=== PATIENT | female | born 1970 | race Caucasian/White ===

== ENCOUNTER 2016-04-30 19:10 | Inpatient (IN) | payer OTHER ==
[~2016-04-30] VITALS: Ht 154.9 cm; Wt 83.3 kg
[~2016-04-30 19:10] MED LIST: ALBU8.5H IH; CARI350 PO; CITA10TA7 PO; HYDR1LIQ5 PO; IBUP-1547 PO; IPRA3AMP4 IH; LEVO500 PO; LORA1TAB3 PO; MORP15 PO; OLAN10TA3 PO; PROM25 PO; QUET25TA PO; RANI150T7 PO; TOPI-37 PO
[2016-04-30] MEDS ORDERED: BACL10TA PO (19:40)
[2016-04-30 20:28] LABS: BASOPHILS % (AUTO) 0.1 % (0.0-2.0); EOSINOPHILS % (AUTO) 0 % (1.0-6.0); HEMOGLOBIN 11.2 g/dL (12.0-16.0); LYMPHOCYTES # (AUTO) 1.8 K/uL (1.0-4.8); LYMPHOCYTES % (AUTO) 6.2 % (22.0-44.0); MEAN CORPUSCULAR HEMOGLOBIN 26.4 pg (26.0-34.0); MEAN CORPUSCULAR HGB CONC 32.9 G/dL (31.0-37.0); MEAN CORPUSCULAR VOLUME 80 fL (80-100); MONOCYTES # (AUTO) 1.3 K/uL (0.1-1.0); MONOCYTES % (AUTO) 4.3 % (2.0-9.0); NEUTROPHILS # (AUTO) 26.4 K/uL (1.8-7.7); NEUTROPHILS % (AUTO) 89.4 % (40.0-70.0); PLATELET COUNT (AUTO) 263 K/uL (150-450); RED BLOOD CELL COUNT(AUTO) 4.24 MIL/uL (4.00-5.20); RED CELL DISTRIBUTION WIDTH 16.3 % (11.5-14.5); WHITE BLOOD COUNT (AUTO) 29.5 K/uL (4.5-11.0)
[2016-04-30 20:35] LABS: INR 1.1 (0.9-1.1); PROTHROMBIN TIME 11.9 SEC (9.4-11.6)
[2016-04-30 20:38] LABS: ALANINE AMINOTRANSFERASE 23 U/L (12-78); ALBUMIN 2.8 g/dL (3.4-5.0); ANION GAP 16 mmol/L (8-16); ASPARTATE AMINOTRANSFERASE 23 U/L (15-37); BILIRUBIN,TOTAL 0.7 mg/dL (0.1-1.0); CALCIUM, TOTAL 8.2 mg/dL (8.8-10.5); CARBON DIOXIDE 19 mmol/L (22-29); CHLORIDE 89 mmol/L (98-107); CREATINE KINASE, TOTAL 46 U/L (26-192); CREATININE 1.25 mg/dL (0.60-1.30); GLOMERULAR FILTR. RATE CALC 46 mL/min (>60); TOTAL PROTEIN, SERUM 7.8 g/dL (6.4-8.2); UREA NITROGEN, BLOOD 8 mg/dL (7-18)
[2016-04-30 20:43] LABS: POTASSIUM 2.8 mmol/L (3.5-5.1); SODIUM SERUM 124 mmol/L (136-145)
[2016-04-30] MEDS ORDERED: ALBUTEROL SULFATE 5 MG/ML 20 ML NEB SOLN [BULK] NEB ONE ×2 (20:45→23:15)
[2016-04-30] MEDS ORDERED: IPRATROPIUM BROMIDE 0.5 MG/2.5 ML NEB SOLUTION NEB ONE ×2 (20:45→23:15)
[2016-04-30 20:56] LABS: B-TYPE NATRIURETIC PEPTIDE 58 pg/mL (0-100)
[2016-04-30 21:15] LABS: RBC MORPHOLOGY COMMENT NORMAL RBC MORPH
[2016-04-30] MEDS ORDERED: POTASSIUM CHLORIDE 10% 40 MEQ/30 ML LIQUID UDCUP PO ONE (21:15)
[2016-04-30] MEDS ORDERED: MethylPREDNISolone SOD SUCC 125 MG/2 ML VIAL IVP ONE (21:15)
[2016-04-30] MEDS ORDERED: ASPIRIN 81 MG CHEWABLE TABLET PO ONE (21:15)
[2016-04-30] MEDS ORDERED: ONDANSETRON HCL 4 MG/2 ML VIAL IVP ONE (21:15)
[2016-04-30] MEDS ORDERED: MORPHINE SULFATE 4 MG/ML SYRINGE IVP ONE (21:15)
[2016-04-30] MEDS ORDERED: LEVOFLOXACIN 750 MG/D5% WATER 150 ML IV ONE (21:15)
[2016-04-30] MEDS ORDERED: SODIUM CHLORIDE 0.9% 1,000 ML IV ONE ×2 (21:15→23:15)
[2016-04-30] MEDS: POTASSIUM CHL 10 MEQ/WATER 50 ML IV SCH ×2 (21:29→23:27)
[2016-04-30] MEDS ORDERED: SODIUM CHLORIDE 0.9% 100 ML ONE (21:42)
[2016-04-30] MEDS ORDERED: IOVERSOL 350 MG/ML 100 ML VIAL ONE (21:42)
[2016-04-30 21:55] LABS: PHOSPHORUS 3.9 mg/dL (2.5-4.9)
[2016-04-30 23:06] LABS: ABG A-A DIFF O2 150.3 mmHg (10-20.0); ABG HCO3 16.4 mmol/L (22.0-26.0); ABG OXYHEMOGLOBIN 83.2 % (94.0-100.0); ABG PCO2 33 mmHg (35-45); ABG PH 7.295 (7.35-7.450); TEMPERATURE, FAHRENHEIT, BG 98.6 FAHREN (96.0-98.6)
[2016-04-30 23:14] LABS: ADD UA MICROSCOPIC NO; APPEARANCE,URINE CLEAR (CLEAR); GLUCOSE, URINE (UA) NEGATIVE (NEGATIVE); KETONES,URINE NEGATIVE (NEGATIVE); LEUKOCYTE ESTERASE ,URINE NEGATIVE (NEGATIVE); OCCULT BLOOD,URINE NEGATIVE (NEGATIVE); PROTEIN,URINE NEGATIVE (NEGATIVE)
[2016-05-01] MEDS ORDERED: MAGNESIUM SULFATE 1 GM in DEXTROSE 5%-WATER 50 ML IV ONE ×2
[2016-05-01] MEDS ORDERED: ONDANSETRON HCL 4 MG/2 ML VIAL IVP ONE
[2016-05-01] MEDS ORDERED: MORPHINE SULFATE 4 MG/ML SYRINGE IVP ONE
[2016-05-01] MEDS: POTASSIUM CHL 10 MEQ/WATER 50 ML IV SCH (01:11)
[2016-05-01 01:22] VITALS: BP 144/53
[2016-05-01] MEDS ORDERED: ALBUTEROL SULFATE HFA 90 MCG/PUFF 8 GM INHALER IH PRN (02:15)
[2016-05-01] MEDS ORDERED: MISC MED-CONVERTED FROM AMBULATORY (Ipratropium/Albuterol Sulfate (Duoneb 2.5-0.5 Mg/3 Ml IH SCH (02:15)
[2016-05-01] MEDS ORDERED: PROMETHAZINE HCL 25 MG TABLET PO PRN (02:15)
[2016-05-01] MEDS ORDERED: RANITIDINE HCL 150 MG TABLET PO PRN (02:15)
[2016-05-01] MEDS ORDERED: HYDROmorphone HCL 2 MG TABLET PO SCH (02:15)
[2016-05-01] MEDS: LORazepam 1 MG TABLET PO PRN ×4 (02:25→23:45)
[2016-05-01] MEDS ORDERED: INFLUENZA VIRUS VACCINE QVS 2016-17 (3YR+)/PF 60 MCG/0.5 ML SYRINGE IM ONE (04:15)
[2016-05-01] MEDS ORDERED: PNEUMOCOCCAL VACCINE POLYVALENT 0.5 ML VIAL [PPSV23] IM ONE (04:15)
[2016-05-01 05:18] VITALS: BP 106/72
[2016-05-01] MEDS ORDERED: MAGNESIUM SULFATE 2 GM in DEXTROSE 5%-WATER 50 ML IV PRN (06:15)
[2016-05-01] MEDS ORDERED: MAGNESIUM SULFATE 4 GM/WATER 100 ML IV PRN (06:15)
[2016-05-01] MEDS ORDERED: POTASSIUM CHLORIDE 20 MEQ ER TABLET PO PRN (06:15)
[2016-05-01] MEDS ORDERED: MAGNESIUM OXIDE 400 MG TABLET PO PRN (06:15)
[2016-05-01] MEDS ORDERED: POTASSIUM CHL 10 MEQ/WATER 50 ML IV PRN (06:15)
[2016-05-01] MEDS ORDERED: DEXTROSE 50%-WATER 25 GM/50 ML SYRINGE IVP PRN (06:15)
[2016-05-01] MEDS ORDERED: ACETAMINOPHEN 325 MG TABLET PO PRN (06:30)
[2016-05-01] MEDS ORDERED: MAGNESIUM HYDROXIDE SUSPENSION 30 ML UDCUP PO PRN (06:30)
[2016-05-01] MEDS ORDERED: 0.9% SODIUM CHLORIDE 10 ML SYRINGE IVP PRN (06:30)
[2016-05-01] MEDS ORDERED: ONDANSETRON HCL 4 MG/2 ML VIAL IVP PRN (06:30)
[2016-05-01] MEDS ORDERED: *CLINICAL-LEVOFLOXACIN IVPB DOSING CLINICAL ONE ×2 (06:30)
[2016-05-01 06:50] LABS: EOSINOPHILS % (AUTO) 0 % (1.0-6.0); HEMATOCRIT 31.2 % (36-46); HEMOGLOBIN 10.2 g/dL (12.0-16.0); LYMPHOCYTES # (AUTO) 0.5 K/uL (1.0-4.8); LYMPHOCYTES % (AUTO) 1.8 % (22.0-44.0); MEAN CORPUSCULAR HEMOGLOBIN 26.4 pg (26.0-34.0); MEAN CORPUSCULAR HGB CONC 32.7 G/dL (31.0-37.0); MEAN CORPUSCULAR VOLUME 81 fL (80-100); MONOCYTES # (AUTO) 0.5 K/uL (0.1-1.0); MONOCYTES % (AUTO) 1.9 % (2.0-9.0); NEUTROPHILS # (AUTO) 24.7 K/uL (1.8-7.7); PLATELET COUNT (AUTO) 242 K/uL (150-450); RED BLOOD CELL COUNT(AUTO) 3.87 MIL/uL (4.00-5.20); RED CELL DISTRIBUTION WIDTH 16.6 % (11.5-14.5); WHITE BLOOD COUNT (AUTO) 25.7 K/uL (4.5-11.0)
[2016-05-01 07:06] LABS: ALBUMIN 2.5 g/dL (3.4-5.0); CALCIUM, TOTAL 8.7 mg/dL (8.8-10.5); CHOL/HDL RATIO 7.7 (3.9-5.7); CREATININE 1.12 mg/dL (0.60-1.30); POTASSIUM 4.3 mmol/L (3.5-5.1)
[2016-05-01 07:29] LABS: NEUTROPHILS % (AUTO) 96.3 % (40.0-70.0)
[2016-05-01 07:39] VITALS: BP 141/83
[2016-05-01] MEDS: IPRATROPIUM BROMIDE 0.5 MG/2.5 ML NEB SOLUTION NEB SCH ×3 (07:41→19:35)
[2016-05-01] MEDS: ALBUTEROL SULFATE 2.5 MG/0.5 ML NEB SOLUTION NEB SCH ×3 (07:41→19:35)
[2016-05-01] MEDS: IBUPROFEN 800 MG TABLET PO SCH ×3 (08:12→17:29)
[2016-05-01] MEDS: TOPIRAMATE 100 MG TABLET PO SCH ×2 (08:12→21:41)
[2016-05-01] MEDS: MORPHINE SULFATE 15 MG ER TABLET PO SCH ×2 (08:12→21:42)
[2016-05-01] MEDS: PANTOPRAZOLE SODIUM 40 MG/VIAL IVP SCH (08:12)
[2016-05-01] MEDS: BACLOFEN 10 MG TABLET PO SCH ×4 (08:12→21:41)
[2016-05-01] MEDS: DOCUSATE SODIUM 100 MG CAPSULE PO SCH ×2 (08:15→21:41)
[2016-05-01] MEDS: OxyCODONE HCL/ACETAMINOPHEN 5-325 MG TABLET PO PRN ×3 (08:21→14:17)
[2016-05-01 09:38] LABS: HEMOGLOBIN A1C 6.5 % (4.5-6.2)
[2016-05-01 09:59] LABS: MAGNESIUM 2.4 mg/dL (1.80-2.40)
[2016-05-01 10:50] VITALS: BP 113/62
[2016-05-01] MEDS ORDERED: VANCOMYCIN HCL 1 GM/D5% WATER 200 ML IV ONE (11:00)
[2016-05-01] MEDS: SODIUM CHLORIDE 0.9% 1,000 ML IV SCH ×2 (12:46→16:15)
[2016-05-01 13:57] LABS: INFLUENZA TYPE B NEGATIVE FOR TYPE B (NEGATIVE)
[2016-05-01 14:01] LABS: ABG A-A DIFF O2 270.3 mmHg (10-20.0); ABG BASE EXCESS -9.6 mmol/L (-2.0-3.0); ABG HCO3 17.2 mmol/L (22.0-26.0); ABG OXYHEMOGLOBIN 95.4 % (94.0-100.0); ABG PCO2 40 mmHg (35-45); ALLEN TEST, BLOOD GAS POSITIVE; TEMPERATURE, FAHRENHEIT, BG 98.6 FAHREN (96.0-98.6)
[2016-05-01 14:02] LABS: IPAP, BG 10 cm H2O
[2016-05-01 14:02] LABS: GLUCOSE,POINT OF CARE 305 MG/DL (70-110)
[2016-05-01 14:02] LABS: GLUCOSE,POINT OF CARE 263 MG/DL (70-110)
[2016-05-01] MEDS: MethylPREDNISolone SOD SUCC 125 MG/2 ML VIAL IVP SCH (17:52)
[2016-05-01 19:30] VITALS: BP 132/59
[2016-05-01] MEDS: BUDESONIDE 0.5 MG/2 ML NEB SOLUTION NEB SCH (19:35)
[2016-05-01] MEDS: VANCOMYCIN HCL 1.25 GM in DEXTROSE 5%-WATER 250 ML IV SCH (21:40)
[2016-05-01] MEDS: OLANZapine 10 MG TABLET PO SCH (21:41)
[2016-05-01] MEDS: CITALOPRAM HYDROBROMIDE 10 MG TABLET PO SCH (21:42)
[2016-05-01] MEDS: INSULIN ASPART 100 UNITS/ML SQ PRN (21:52)
[2016-05-01 23:17] LABS: GLUCOSE COMMENT 1 Received Meds; GLUCOSE,POINT OF CARE 210 MG/DL (70-110)
[2016-05-01] MEDS: QUEtiapine FUMARATE 25 MG TABLET PO PRN (23:54)
[2016-05-02] VITALS (7 sets, daily range): BP systolic 107–153; BP diastolic 49–91
[2016-05-02] MEDS: MethylPREDNISolone SOD SUCC 125 MG/2 ML VIAL IVP SCH ×2 (00:08→06:24)
[2016-05-02] MEDS: LEVOFLOXACIN 750 MG/D5% WATER 150 ML IV SCH ×2 (00:16→20:26)
[2016-05-02] MEDS: CEFEPIME HCL 2 GM in DEXTROSE 5%-WATER 50 ML IV SCH ×3 (01:00→23:50)
[2016-05-02] MEDS: OxyCODONE HCL/ACETAMINOPHEN 5-325 MG TABLET PO PRN ×4 (01:08→19:29)
[2016-05-02] MEDS: IPRATROPIUM BROMIDE 0.5 MG/2.5 ML NEB SOLUTION NEB SCH ×4 (02:11→19:49)
[2016-05-02] MEDS: ALBUTEROL SULFATE 2.5 MG/0.5 ML NEB SOLUTION NEB SCH ×4 (02:11→19:49)
[2016-05-02] MEDS: SODIUM CHLORIDE 0.9% 1,000 ML IV SCH ×3 (02:15→23:53)
[2016-05-02] MEDS: LORazepam 1 MG TABLET PO PRN ×3 (03:54→21:23)
[2016-05-02] MEDS: INSULIN ASPART 100 UNITS/ML SQ PRN ×4 (06:30→22:27)
[2016-05-02 07:46] LABS: BASOPHILS # (AUTO) 0.01 K/uL (0.00-0.20); EOSINOPHILS % (AUTO) 0 % (1.0-6.0); HEMATOCRIT 31.1 % (36-46); HEMOGLOBIN 10.3 g/dL (12.0-16.0); LYMPHOCYTES # (AUTO) 0.8 K/uL (1.0-4.8); LYMPHOCYTES % (AUTO) 2.6 % (22.0-44.0); MEAN CORPUSCULAR HEMOGLOBIN 26.6 pg (26.0-34.0); MEAN CORPUSCULAR HGB CONC 33.2 G/dL (31.0-37.0); MEAN CORPUSCULAR VOLUME 80 fL (80-100); MONOCYTES # (AUTO) 0.4 K/uL (0.1-1.0); MONOCYTES % (AUTO) 1.2 % (2.0-9.0); NEUTROPHILS # (AUTO) 28.8 K/uL (1.8-7.7); PLATELET COUNT (AUTO) 274 K/uL (150-450); RED BLOOD CELL COUNT(AUTO) 3.89 MIL/uL (4.00-5.20); RED CELL DISTRIBUTION WIDTH 17.6 % (11.5-14.5); WHITE BLOOD COUNT (AUTO) 29.9 K/uL (4.5-11.0)
[2016-05-02] MEDS: VANCOMYCIN HCL 1.25 GM in DEXTROSE 5%-WATER 250 ML IV SCH ×2 (08:05→22:20)
[2016-05-02 08:07] LABS: NEUTROPHILS % (AUTO) 96.2 % (40.0-70.0)
[2016-05-02 08:14] LABS: ANION GAP 10 mmol/L (8-16); CALCIUM, TOTAL 9.1 mg/dL (8.8-10.5); CARBON DIOXIDE 23 mmol/L (22-29); CHLORIDE 106 mmol/L (98-107); CREATININE 0.77 mg/dL (0.60-1.30); GLOMERULAR FILTR. RATE CALC > 60 mL/min (>60); POTASSIUM 4.7 mmol/L (3.5-5.1); SODIUM SERUM 139 mmol/L (136-145); THYROID STIMULATING HORMONE 0.52 uIU/mL (0.36-3.74); UREA NITROGEN, BLOOD 8 mg/dL (7-18)
[2016-05-02] MEDS: BUDESONIDE 0.5 MG/2 ML NEB SOLUTION NEB SCH ×2 (08:22→19:49)
[2016-05-02] MEDS: MORPHINE SULFATE 15 MG ER TABLET PO SCH ×2 (08:55→21:23)
[2016-05-02] MEDS: TOPIRAMATE 100 MG TABLET PO SCH ×2 (08:55→21:24)
[2016-05-02] MEDS: PANTOPRAZOLE SODIUM 40 MG/VIAL IVP SCH (08:55)
[2016-05-02] MEDS: BACLOFEN 10 MG TABLET PO SCH ×4 (08:55→21:24)
[2016-05-02] MEDS: OLANZapine 10 MG TABLET PO SCH (08:55)
[2016-05-02] MEDS: IBUPROFEN 800 MG TABLET PO SCH ×3 (08:55→17:51)
[2016-05-02] MEDS: DOCUSATE SODIUM 100 MG CAPSULE PO SCH ×2 (08:55→21:23)
[2016-05-02] MEDS: CITALOPRAM HYDROBROMIDE 10 MG TABLET PO SCH (08:55)
[2016-05-02 11:57] LABS: GLUCOSE COMMENT 1 Received Meds; GLUCOSE,POINT OF CARE 191 MG/DL (70-110)
[2016-05-02 13:36] LABS: ABG A-A DIFF O2 308.7 mmHg (10-20.0); ABG BASE EXCESS -6.3 mmol/L (-2.0-3.0); ABG HCO3 19.6 mmol/L (22.0-26.0); ABG OXYHEMOGLOBIN 92.5 % (94.0-100.0); ABG PCO2 41 mmHg (35-45); ABG PH 7.304 (7.35-7.450); TEMPERATURE, FAHRENHEIT, BG 98.6 FAHREN (96.0-98.6)
[2016-05-02 13:37] LABS: ALLEN TEST, BLOOD GAS Positive; IPAP, BG 16 cm H2O
[2016-05-02] MEDS: MethylPREDNISolone SOD SUCC 40 MG/ML VIAL IVP SCH ×2 (17:51→23:53)
[2016-05-02 18:36] LABS: GLUCOSE,POINT OF CARE 159 MG/DL (70-110)
[2016-05-02] MEDS: QUEtiapine FUMARATE 25 MG TABLET PO PRN (23:50)
[2016-05-03] VITALS (7 sets, daily range): BP systolic 120–178; BP diastolic 64–81
[2016-05-03] MEDS: LORazepam 1 MG TABLET PO PRN ×4 (01:35→20:15)
[2016-05-03] MEDS: IPRATROPIUM BROMIDE 0.5 MG/2.5 ML NEB SOLUTION NEB SCH ×4 (02:31→19:45)
[2016-05-03] MEDS: ALBUTEROL SULFATE 2.5 MG/0.5 ML NEB SOLUTION NEB SCH ×4 (02:31→19:45)
[2016-05-03] MEDS: OxyCODONE HCL/ACETAMINOPHEN 5-325 MG TABLET PO PRN ×4 (03:14→15:35)
[2016-05-03] MEDS: MethylPREDNISolone SOD SUCC 40 MG/ML VIAL IVP SCH ×3 (06:20→17:10)
[2016-05-03] MEDS: INSULIN ASPART 100 UNITS/ML SQ PRN ×2 (06:25→21:22)
[2016-05-03 07:24] LABS: POTASSIUM 4.2 mmol/L (3.5-5.1); SODIUM SERUM 139 mmol/L (136-145)
[2016-05-03 07:32] LABS: GLUCOSE COMMENT 1 Received Meds; GLUCOSE,POINT OF CARE 206 MG/DL (70-110)
[2016-05-03 07:41] LABS: ANION GAP 10 mmol/L (8-16); CALCIUM, TOTAL 8.8 mg/dL (8.8-10.5); CARBON DIOXIDE 24 mmol/L (22-29); CHLORIDE 105 mmol/L (98-107); CREATININE 0.81 mg/dL (0.60-1.30); GLOMERULAR FILTR. RATE CALC > 60 mL/min (>60); UREA NITROGEN, BLOOD 12 mg/dL (7-18)
[2016-05-03 07:42] LABS: GLUCOSE COMMENT 1 Received Meds; GLUCOSE,POINT OF CARE 175 MG/DL (70-110)
[2016-05-03] MEDS: BUDESONIDE 0.5 MG/2 ML NEB SOLUTION NEB SCH ×2 (07:59→19:45)
[2016-05-03 08:38] LABS: PROCALCITONIN (PCT) 31.42 ng/mL (<0.50)
[2016-05-03] MEDS: MORPHINE SULFATE 15 MG ER TABLET PO SCH ×2 (08:45→20:15)
[2016-05-03] MEDS: DOCUSATE SODIUM 100 MG CAPSULE PO SCH ×2 (08:45→20:15)
[2016-05-03] MEDS: PANTOPRAZOLE SODIUM 40 MG/VIAL IVP SCH (08:45)
[2016-05-03] MEDS: TOPIRAMATE 100 MG TABLET PO SCH ×2 (08:46→20:16)
[2016-05-03] MEDS: CITALOPRAM HYDROBROMIDE 10 MG TABLET PO SCH (08:46)
[2016-05-03] MEDS: IBUPROFEN 800 MG TABLET PO SCH ×3 (08:46→17:10)
[2016-05-03] MEDS: BACLOFEN 10 MG TABLET PO SCH ×4 (08:46→20:15)
[2016-05-03] MEDS: VANCOMYCIN HCL 1.25 GM in DEXTROSE 5%-WATER 250 ML IV SCH ×2 (08:47→20:16)
[2016-05-03] MEDS: OLANZapine 10 MG TABLET PO SCH (08:47)
[2016-05-03] MEDS: SODIUM CHLORIDE 0.9% 1,000 ML IV SCH ×2 (08:53→23:45)
[2016-05-03 09:35] LABS: ABG A-A DIFF O2 252.7 mmHg (10-20.0); ABG BASE EXCESS -4.1 mmol/L (-2.0-3.0); ABG HCO3 21.2 mmol/L (22.0-26.0); ABG OXYHEMOGLOBIN 87.9 % (94.0-100.0); ABG PCO2 40 mmHg (35-45); ABG PH 7.348 (7.35-7.450); ALLEN TEST, BLOOD GAS Positive; IPAP, BG 12 cm H2O
[2016-05-03] MEDS: CEFEPIME HCL 2 GM in DEXTROSE 5%-WATER 50 ML IV SCH (10:22)
[2016-05-03 12:17] LABS: GLUCOSE COMMENT 1 Received Meds; GLUCOSE,POINT OF CARE 210 MG/DL (70-110)
[2016-05-03 19:57] LABS: GLUCOSE COMMENT 1 Received Meds; GLUCOSE,POINT OF CARE 158 MG/DL (70-110)
[2016-05-03 19:57] LABS: GLUCOSE COMMENT 1 Received Meds; GLUCOSE,POINT OF CARE 150 MG/DL (70-110)
[2016-05-03] MEDS: QUEtiapine FUMARATE 25 MG TABLET PO PRN (21:25)
[2016-05-03 23:16] LABS: ABG A-A DIFF O2 230.8 mmHg (10-20.0); ABG BASE EXCESS -3.7 mmol/L (-2.0-3.0); ABG OXYHEMOGLOBIN 88.5 % (94.0-100.0); ABG PCO2 53 mmHg (35-45); ABG PH 7.263 (7.35-7.450); TEMPERATURE, FAHRENHEIT, BG 98.6 FAHREN (96.0-98.6)
[2016-05-03 23:17] LABS: ALLEN TEST, BLOOD GAS Positive; IPAP, BG 20 cm H2O
[2016-05-03] MEDS ORDERED: LORazepam 2 MG/ML VIAL IVP ONE (23:30)
[2016-05-03] MEDS: LEVOFLOXACIN 750 MG/D5% WATER 150 ML IV SCH (23:44)
[2016-05-04] VITALS (12 sets, daily range): BP systolic 108–164; BP diastolic 59–93
[2016-05-04] MEDS: CEFEPIME HCL 2 GM in DEXTROSE 5%-WATER 50 ML IV SCH ×3 (01:00→22:26)
[2016-05-04] MEDS ORDERED: PROPOFOL 1000 MG/ISO-OSM 100 ML IV PRN (02:00)
[2016-05-04] MEDS: IPRATROPIUM BROMIDE 0.5 MG/2.5 ML NEB SOLUTION NEB SCH ×4 (02:30→20:06)
[2016-05-04] MEDS: ALBUTEROL SULFATE 2.5 MG/0.5 ML NEB SOLUTION NEB SCH ×4 (02:30→20:06)
[2016-05-04 02:39] LABS: ABG A-A DIFF O2 488.7 mmHg (10-20.0); ABG HCO3 19.5 mmol/L (22.0-26.0); ABG PCO2 52 mmHg (35-45); ABG PH 7.236 (7.35-7.450); TEMPERATURE, FAHRENHEIT, BG 98.6 FAHREN (96.0-98.6)
[2016-05-04 02:40] LABS: ALLEN TEST, BLOOD GAS Positive
[2016-05-04] MEDS: MethylPREDNISolone SOD SUCC 40 MG/ML VIAL IVP SCH ×4 (03:02→19:00)
[2016-05-04 03:21] LABS: ANION GAP 10 mmol/L (8-16); CALCIUM, TOTAL 8.7 mg/dL (8.8-10.5); CARBON DIOXIDE 25 mmol/L (22-29); CHLORIDE 107 mmol/L (98-107); CREATININE 0.81 mg/dL (0.60-1.30); GLOMERULAR FILTR. RATE CALC > 60 mL/min (>60); POTASSIUM 3.8 mmol/L (3.5-5.1); SODIUM SERUM 142 mmol/L (136-145); UREA NITROGEN, BLOOD 13 mg/dL (7-18)
[2016-05-04] MEDS: SODIUM CHLORIDE 0.9% 1,000 ML IV SCH ×3 (06:59→21:09)
[2016-05-04 07:33] LABS: ABG A-A DIFF O2 247.5 mmHg (10-20.0); ABG BASE EXCESS -0.6 mmol/L (-2.0-3.0); ABG OXYHEMOGLOBIN 89.8 % (94.0-100.0); ABG PCO2 41 mmHg (35-45); ABG PH 7.395 (7.35-7.450); TEMPERATURE, FAHRENHEIT, BG 99.8 FAHREN (96.0-98.6)
[2016-05-04 07:35] LABS: ALLEN TEST, BLOOD GAS Positive
[2016-05-04] MEDS: VANCOMYCIN HCL 1.25 GM in DEXTROSE 5%-WATER 250 ML IV SCH ×2 (07:39→20:16)
[2016-05-04] MEDS: IBUPROFEN 800 MG TABLET PO SCH ×3 (07:46→19:00)
[2016-05-04] MEDS: PANTOPRAZOLE SODIUM 40 MG/VIAL IVP SCH (07:46)
[2016-05-04] MEDS: OLANZapine 10 MG TABLET PO SCH (07:47)
[2016-05-04] MEDS: CITALOPRAM HYDROBROMIDE 10 MG TABLET PO SCH (07:47)
[2016-05-04] MEDS: BACLOFEN 10 MG TABLET PO SCH ×4 (07:47→20:16)
[2016-05-04] MEDS: DOCUSATE SODIUM 100 MG CAPSULE PO SCH ×2 (07:47→20:16)
[2016-05-04] MEDS: TOPIRAMATE 100 MG TABLET PO SCH ×2 (07:49→20:18)
[2016-05-04 08:12] LABS: GLUCOSE COMMENT 1 Received Meds; GLUCOSE,POINT OF CARE 143 MG/DL (70-110)
[2016-05-04] MEDS: BUDESONIDE 0.5 MG/2 ML NEB SOLUTION NEB SCH ×2 (08:41→20:06)
[2016-05-04] MEDS: MORPHINE SULFATE 15 MG ER TABLET PO SCH ×2 (09:00→20:16)
[2016-05-04] MEDS: INSULIN ASPART 100 UNITS/ML SQ PRN ×2 (09:27→11:43)
[2016-05-04] MEDS: PROPOFOL 1000 MG/ISO-OSM 100 ML IV PRN ×5 (10:27→22:48)
[2016-05-04] MEDS ORDERED: SODIUM CHLORIDE 0.9% 250 ML IV ONE (11:31)
[2016-05-04 11:43] LABS: GLUCOSE COMMENT 1 Received Meds; GLUCOSE,POINT OF CARE 174 MG/DL (70-110)
[2016-05-04] MEDS ORDERED: ETOMIDATE 2 MG/ML 10 ML VIAL IVP ONE (12:00)
[2016-05-04] MEDS: QUEtiapine FUMARATE 25 MG TABLET PO PRN (15:03)
[2016-05-04] MEDS: OxyCODONE HCL/ACETAMINOPHEN 5-325 MG TABLET PO PRN ×2 (15:03→20:17)
[2016-05-04] MEDS: LORazepam 1 MG TABLET PO PRN ×2 (15:03→20:17)
[2016-05-04] MEDS: LEVOFLOXACIN 750 MG/D5% WATER 150 ML IV SCH (22:26)
[2016-05-05] VITALS (14 sets, daily range): BP systolic 116–177; BP diastolic 66–98
[2016-05-05] MEDS: MethylPREDNISolone SOD SUCC 40 MG/ML VIAL IVP SCH ×5 (00:41→23:52)
[2016-05-05] MEDS: INSULIN ASPART 100 UNITS/ML SQ PRN ×4 (00:47→18:43)
[2016-05-05] MEDS: IPRATROPIUM BROMIDE 0.5 MG/2.5 ML NEB SOLUTION NEB SCH ×4 (02:00→19:43)
[2016-05-05] MEDS: ALBUTEROL SULFATE 2.5 MG/0.5 ML NEB SOLUTION NEB SCH ×4 (02:00→19:43)
[2016-05-05] MEDS ORDERED: SODIUM CHLORIDE 0.9% 250 ML IV ONE (02:20)
[2016-05-05 03:57] LABS: GLUCOSE COMMENT 1 Received Meds; GLUCOSE,POINT OF CARE 162 MG/DL (70-110)
[2016-05-05 04:01] LABS: GLUCOSE COMMENT 1 Received Meds; GLUCOSE,POINT OF CARE 197 MG/DL (70-110)
[2016-05-05] MEDS: OxyCODONE HCL/ACETAMINOPHEN 5-325 MG TABLET PO PRN ×3 (04:37→19:28)
[2016-05-05] MEDS: PROPOFOL 1000 MG/ISO-OSM 100 ML IV PRN ×6 (04:37→23:33)
[2016-05-05] MEDS: LORazepam 1 MG TABLET PO PRN ×3 (04:38→19:28)
[2016-05-05 05:07] LABS: GLUCOSE,POINT OF CARE 160 MG/DL (70-110)
[2016-05-05 05:21] LABS: EOSINOPHILS # (AUTO) 0.02 K/uL (0.00-0.70); EOSINOPHILS % (AUTO) 0.16 % (1.0-6.0); HEMATOCRIT 27.2 % (36-46); HEMOGLOBIN 9.2 g/dL (12.0-16.0); LYMPHOCYTES # (AUTO) 0.9 K/uL (1.0-4.8); LYMPHOCYTES % (AUTO) 8.2 % (22.0-44.0); MEAN CORPUSCULAR HEMOGLOBIN 26.9 pg (26.0-34.0); MEAN CORPUSCULAR HGB CONC 33.9 G/dL (31.0-37.0); MEAN CORPUSCULAR VOLUME 79 fL (80-100); MONOCYTES # (AUTO) 0.2 K/uL (0.1-1.0); MONOCYTES % (AUTO) 1.5 % (2.0-9.0); NEUTROPHILS # (AUTO) 9.8 K/uL (1.8-7.7); PLATELET COUNT (AUTO) 241 K/uL (150-450); RED BLOOD CELL COUNT(AUTO) 3.42 MIL/uL (4.00-5.20); RED CELL DISTRIBUTION WIDTH 17.1 % (11.5-14.5); WHITE BLOOD COUNT (AUTO) 10.8 K/uL (4.5-11.0)
[2016-05-05 05:24] LABS: NEUTROPHILS % (AUTO) 90.1 % (40.0-70.0)
[2016-05-05 05:32] LABS: ANION GAP 11 mmol/L (8-16); CALCIUM, TOTAL 8.3 mg/dL (8.8-10.5); CARBON DIOXIDE 22 mmol/L (22-29); CHLORIDE 106 mmol/L (98-107); CREATINE KINASE, TOTAL 38 U/L (26-192); GLOMERULAR FILTR. RATE CALC > 60 mL/min (>60); PHOSPHORUS 2.9 mg/dL (2.5-4.9); POTASSIUM 3.3 mmol/L (3.5-5.1); SODIUM SERUM 139 mmol/L (136-145); UREA NITROGEN, BLOOD 14 mg/dL (7-18)
[2016-05-05] MEDS: SODIUM CHLORIDE 0.9% 1,000 ML IV SCH ×2 (06:03→17:10)
[2016-05-05] MEDS: BUDESONIDE 0.5 MG/2 ML NEB SOLUTION NEB SCH ×2 (07:40→19:43)
[2016-05-05] MEDS: IBUPROFEN 800 MG TABLET PO SCH ×3 (08:06→17:09)
[2016-05-05] MEDS: MORPHINE SULFATE 15 MG ER TABLET PO SCH ×2 (08:07→20:07)
[2016-05-05] MEDS: CITALOPRAM HYDROBROMIDE 10 MG TABLET PO SCH (08:07)
[2016-05-05] MEDS: OLANZapine 10 MG TABLET PO SCH (08:07)
[2016-05-05] MEDS: BACLOFEN 10 MG TABLET PO SCH ×4 (08:07→20:07)
[2016-05-05] MEDS: VANCOMYCIN HCL 1.25 GM in DEXTROSE 5%-WATER 250 ML IV SCH ×2 (08:08→20:07)
[2016-05-05] MEDS: TOPIRAMATE 100 MG TABLET PO SCH ×2 (08:08→20:07)
[2016-05-05] MEDS: DOCUSATE SODIUM 100 MG CAPSULE PO SCH ×2 (08:08→20:07)
[2016-05-05] MEDS: PANTOPRAZOLE SODIUM 40 MG/VIAL IVP SCH (08:08)
[2016-05-05 08:11] LABS: ABG A-A DIFF O2 137.3 mmHg (10-20.0); ABG BASE EXCESS -1.5 mmol/L (-2.0-3.0); ABG HCO3 23.5 mmol/L (22.0-26.0); ABG OXYHEMOGLOBIN 92.7 % (94.0-100.0); ABG PCO2 35 mmHg (35-45); ABG PH 7.428 (7.35-7.450); TEMPERATURE, FAHRENHEIT, BG 98.6 FAHREN (96.0-98.6)
[2016-05-05 08:14] LABS: ALLEN TEST, BLOOD GAS Positive
[2016-05-05] MEDS: CEFEPIME HCL 2 GM in DEXTROSE 5%-WATER 50 ML IV SCH ×2 (11:16→22:18)
[2016-05-05 11:32] LABS: CREATINE KINASE, TOTAL 28 U/L (26-192); POTASSIUM 3.7 mmol/L (3.5-5.1)
[2016-05-05 11:32] LABS: ORGANISM ID Not indicated.
[2016-05-05 14:16] LABS: GLUCOSE COMMENT 1 Received Meds; GLUCOSE,POINT OF CARE 149 MG/DL (70-110)
[2016-05-05 14:16] LABS: GLUCOSE COMMENT 1 Received Meds; GLUCOSE,POINT OF CARE 182 MG/DL (70-110)
[2016-05-05] MEDS: LEVOFLOXACIN 750 MG/D5% WATER 150 ML IV SCH (22:17)
[2016-05-05] MEDS: FentaNYL CITRATE PF 500 MCG in DEXTROSE 5%-WATER 90 ML IV PRN (22:23)
[2016-05-06] VITALS (14 sets, daily range): BP systolic 128–164; BP diastolic 65–90
[2016-05-06] MEDS: INSULIN ASPART 100 UNITS/ML SQ PRN ×2 (00:09→11:53)
[2016-05-06] MEDS ORDERED: SODIUM CHLORIDE 0.9% 250 ML IV ONE (02:00)
[2016-05-06] MEDS: ALBUTEROL SULFATE 2.5 MG/0.5 ML NEB SOLUTION NEB SCH ×4 (02:02→19:35)
[2016-05-06] MEDS: IPRATROPIUM BROMIDE 0.5 MG/2.5 ML NEB SOLUTION NEB SCH ×4 (02:02→19:35)
[2016-05-06] MEDS: SODIUM CHLORIDE 0.9% 1,000 ML IV SCH ×2 (02:08→11:52)
[2016-05-06] MEDS: OxyCODONE HCL/ACETAMINOPHEN 5-325 MG TABLET PO PRN (03:44)
[2016-05-06] MEDS: MIDAZOLAM HCL 100 MG in DEXTROSE 5%-WATER 180 ML IV PRN (05:00)
[2016-05-06 05:31] LABS: HEMATOCRIT 29.8 % (36-46); HEMOGLOBIN 9.7 g/dL (12.0-16.0); MEAN CORPUSCULAR HGB CONC 32.4 G/dL (31.0-37.0); MEAN CORPUSCULAR VOLUME 80 fL (80-100); PLATELET COUNT (AUTO) 297 K/uL (150-450); RED BLOOD CELL COUNT(AUTO) 3.72 MIL/uL (4.00-5.20); RED CELL DISTRIBUTION WIDTH 16.9 % (11.5-14.5); WHITE BLOOD COUNT (AUTO) 18.9 K/uL (4.5-11.0)
[2016-05-06 05:33] LABS: ANION GAP 9 mmol/L (8-16); CALCIUM, TOTAL 8.1 mg/dL (8.8-10.5); CARBON DIOXIDE 23 mmol/L (22-29); CHLORIDE 111 mmol/L (98-107); GLOMERULAR FILTR. RATE CALC > 60 mL/min (>60); POTASSIUM 3.2 mmol/L (3.5-5.1); SODIUM SERUM 143 mmol/L (136-145); UREA NITROGEN, BLOOD 14 mg/dL (7-18)
[2016-05-06 06:06] LABS: GLUCOSE COMMENT 1 Received Meds; GLUCOSE,POINT OF CARE 160 MG/DL (70-110)
[2016-05-06 06:07] LABS: GLUCOSE COMMENT 1 Received Meds; GLUCOSE,POINT OF CARE 147 MG/DL (70-110)
[2016-05-06] MEDS: MethylPREDNISolone SOD SUCC 40 MG/ML VIAL IVP SCH ×3 (06:18→17:25)
[2016-05-06] MEDS: PROPOFOL 1000 MG/ISO-OSM 100 ML IV PRN ×5 (06:58→21:55)
[2016-05-06] MEDS: BUDESONIDE 0.5 MG/2 ML NEB SOLUTION NEB SCH ×2 (07:04→19:48)
[2016-05-06 07:13] LABS: GLUCOSE,POINT OF CARE 139 MG/DL (70-110)
[2016-05-06] MEDS ORDERED: POTASSIUM CHL 10 MEQ/WATER 50 ML IV PRN (08:00)
[2016-05-06] MEDS ORDERED: POTASSIUM CHLORIDE 10% 40 MEQ/30 ML LIQUID UDCUP NG PRN (08:00)
[2016-05-06] MEDS ORDERED: POTASSIUM CHLORIDE 20 MEQ ER TABLET PO PRN (08:00)
[2016-05-06] MEDS: POTASSIUM CHLORIDE 10% 40 MEQ/30 ML LIQUID UDCUP NG PRN (08:25)
[2016-05-06] MEDS: CITALOPRAM HYDROBROMIDE 10 MG TABLET PO SCH (08:25)
[2016-05-06] MEDS: MORPHINE SULFATE 15 MG ER TABLET PO SCH ×2 (08:25→20:11)
[2016-05-06] MEDS: IBUPROFEN 800 MG TABLET PO SCH ×3 (08:26→17:25)
[2016-05-06] MEDS: OLANZapine 10 MG TABLET PO SCH (08:26)
[2016-05-06] MEDS: TOPIRAMATE 100 MG TABLET PO SCH ×2 (08:26→20:11)
[2016-05-06] MEDS: PANTOPRAZOLE SODIUM 40 MG/VIAL IVP SCH (08:27)
[2016-05-06] MEDS: VANCOMYCIN HCL 1.25 GM in DEXTROSE 5%-WATER 250 ML IV SCH (08:27)
[2016-05-06] MEDS: DOCUSATE SODIUM 100 MG CAPSULE PO SCH ×2 (08:28→20:11)
[2016-05-06] MEDS: BACLOFEN 10 MG TABLET PO SCH ×4 (08:29→20:11)
[2016-05-06 09:30] LABS: ABG A-A DIFF O2 134.6 mmHg (10-20.0); ABG BASE EXCESS -4.2 mmol/L (-2.0-3.0); ABG HCO3 21.4 mmol/L (22.0-26.0); ABG OXYHEMOGLOBIN 93.3 % (94.0-100.0); ABG PCO2 35 mmHg (35-45); ABG PH 7.395 (7.35-7.450); TEMPERATURE, FAHRENHEIT, BG 98.7 FAHREN (96.0-98.6)
[2016-05-06 09:31] LABS: ALLEN TEST, BLOOD GAS Positive
[2016-05-06] MEDS: CEFEPIME HCL 2 GM in DEXTROSE 5%-WATER 50 ML IV SCH ×2 (10:30→22:25)
[2016-05-06] MEDS: FentaNYL CITRATE PF 500 MCG in DEXTROSE 5%-WATER 90 ML IV PRN (10:31)
[2016-05-06 11:42] LABS: GLUCOSE COMMENT 1 Received Meds; GLUCOSE,POINT OF CARE 174 MG/DL (70-110)
[2016-05-06 13:30] LABS: BAND NEUTROPHILS % (MANUAL) 3 % (1-5); LYMPHOCYTES % (MANUAL) 5 % (22-44); METAMYELOCYTES % 2 % (0-0); TOTAL CELLS COUNTED 100
[2016-05-06 17:27] LABS: GLUCOSE COMMENT 1 Received Meds; GLUCOSE,POINT OF CARE 165 MG/DL (70-110)
[2016-05-06] MEDS: VANCOMYCIN HCL 1.5 GM in DEXTROSE 5%-WATER 250 ML IV SCH (20:10)
[2016-05-06] MEDS: LEVOFLOXACIN 750 MG/D5% WATER 150 ML IV SCH (22:24)
[2016-05-07] VITALS (9 sets, daily range): BP systolic 130–176; BP diastolic 65–83
[2016-05-07] MEDS: MethylPREDNISolone SOD SUCC 40 MG/ML VIAL IVP SCH ×4 (00:52→17:34)
[2016-05-07] MEDS: INSULIN ASPART 100 UNITS/ML SQ PRN ×4 (01:01→17:35)
[2016-05-07] MEDS: PROPOFOL 1000 MG/ISO-OSM 100 ML IV PRN ×5 (01:07→17:53)
[2016-05-07] MEDS: MIDAZOLAM HCL 100 MG in DEXTROSE 5%-WATER 180 ML IV PRN ×2 (01:08→22:58)
[2016-05-07] MEDS: IPRATROPIUM BROMIDE 0.5 MG/2.5 ML NEB SOLUTION NEB SCH ×4 (01:38→20:08)
[2016-05-07] MEDS: ALBUTEROL SULFATE 2.5 MG/0.5 ML NEB SOLUTION NEB SCH ×4 (01:38→20:08)
[2016-05-07] MEDS ORDERED: SODIUM CHLORIDE 0.9% 250 ML IV ONE ×2 (04:57→10:38)
[2016-05-07] MEDS: SODIUM CHLORIDE 0.9% 1,000 ML IV SCH ×3 (05:00→22:13)
[2016-05-07] MEDS: OxyCODONE HCL/ACETAMINOPHEN 5-325 MG TABLET PO PRN (05:00)
[2016-05-07 07:07] LABS: ANION GAP 11 mmol/L (8-16); CALCIUM, TOTAL 8.4 mg/dL (8.8-10.5); CARBON DIOXIDE 22 mmol/L (22-29); CHLORIDE 109 mmol/L (98-107); CREATININE 0.61 mg/dL (0.60-1.30); GLOMERULAR FILTR. RATE CALC > 60 mL/min (>60); POTASSIUM 3.7 mmol/L (3.5-5.1); SODIUM SERUM 142 mmol/L (136-145); UREA NITROGEN, BLOOD 11 mg/dL (7-18)
[2016-05-07 07:16] LABS: EOSINOPHILS % (AUTO) 0.1 % (1.0-6.0); HEMATOCRIT 31.1 % (36-46); LYMPHOCYTES # (AUTO) 1.2 K/uL (1.0-4.8); LYMPHOCYTES % (AUTO) 7.4 % (22.0-44.0); MEAN CORPUSCULAR HEMOGLOBIN 26.2 pg (26.0-34.0); MEAN CORPUSCULAR HGB CONC 32.2 G/dL (31.0-37.0); MEAN CORPUSCULAR VOLUME 81 fL (80-100); MONOCYTES # (AUTO) 0.1 K/uL (0.1-1.0); MONOCYTES % (AUTO) 0.5 % (2.0-9.0); NEUTROPHILS # (AUTO) 15.1 K/uL (1.8-7.7); PLATELET COUNT (AUTO) 316 K/uL (150-450); RED BLOOD CELL COUNT(AUTO) 3.82 MIL/uL (4.00-5.20); RED CELL DISTRIBUTION WIDTH 17.1 % (11.5-14.5); WHITE BLOOD COUNT (AUTO) 16.4 K/uL (4.5-11.0)
[2016-05-07] MEDS: BUDESONIDE 0.5 MG/2 ML NEB SOLUTION NEB SCH ×2 (07:17→20:08)
[2016-05-07 07:56] LABS: ABG A-A DIFF O2 146.2 mmHg (10-20.0); ABG BASE EXCESS -7.2 mmol/L (-2.0-3.0); ABG HCO3 19.2 mmol/L (22.0-26.0); ABG OXYHEMOGLOBIN 91.6 % (94.0-100.0); ABG PCO2 30 mmHg (35-45); ABG PH 7.392 (7.35-7.450); TEMPERATURE, FAHRENHEIT, BG 98.6 FAHREN (96.0-98.6)
[2016-05-07 07:58] LABS: ALLEN TEST, BLOOD GAS Positive
[2016-05-07] MEDS: VANCOMYCIN HCL 1.5 GM in DEXTROSE 5%-WATER 250 ML IV SCH (08:28)
[2016-05-07] MEDS: PANTOPRAZOLE SODIUM 40 MG/VIAL IVP SCH (08:29)
[2016-05-07] MEDS: MORPHINE SULFATE 15 MG ER TABLET PO SCH (08:29)
[2016-05-07] MEDS: BACLOFEN 10 MG TABLET PO SCH ×4 (08:29→21:18)
[2016-05-07] MEDS: IBUPROFEN 800 MG TABLET PO SCH ×3 (08:29→17:03)
[2016-05-07] MEDS: TOPIRAMATE 100 MG TABLET PO SCH ×2 (08:30→21:18)
[2016-05-07] MEDS: CITALOPRAM HYDROBROMIDE 10 MG TABLET PO SCH (08:30)
[2016-05-07] MEDS: OLANZapine 10 MG TABLET PO SCH (08:31)
[2016-05-07] MEDS: FentaNYL CITRATE PF 500 MCG in DEXTROSE 5%-WATER 90 ML IV PRN (08:31)
[2016-05-07] MEDS: DOCUSATE SODIUM 100 MG CAPSULE PO SCH ×2 (08:32→21:00)
[2016-05-07] MEDS: CEFEPIME HCL 2 GM in DEXTROSE 5%-WATER 50 ML IV SCH (10:33)
[2016-05-07] MEDS: MORPHINE SULFATE 10 MG/5 ML SOLUTION UDCUP NG SCH ×4 (10:39→22:13)
[2016-05-07] MEDS: LORazepam 1 MG TABLET PO PRN (15:55)
[2016-05-07] MEDS: HEPARIN SODIUM,PORCINE 5,000 UNITS/ML VIAL SQ SCH (15:55)
[2016-05-07 16:15] LABS: ABG A-A DIFF O2 127.7 mmHg (10-20.0); ABG BASE EXCESS -3.6 mmol/L (-2.0-3.0); ABG HCO3 21.7 mmol/L (22.0-26.0); ABG OXYHEMOGLOBIN 93.7 % (94.0-100.0); ABG PCO2 38 mmHg (35-45); ABG PH 7.373 (7.35-7.450); TEMPERATURE, FAHRENHEIT, BG 98.6 FAHREN (96.0-98.6)
[2016-05-07 16:16] LABS: ALLEN TEST, BLOOD GAS Positive
[2016-05-07] MEDS: CefTRIAXone SODIUM 2 GM in DEXTROSE 5%-WATER 50 ML IV SCH (21:18)
[2016-05-08] VITALS (13 sets, daily range): BP systolic 125–158; BP diastolic 63–82
[2016-05-08] MEDS: HEPARIN SODIUM,PORCINE 5,000 UNITS/ML VIAL SQ SCH ×4 (00:15→23:50)
[2016-05-08] MEDS: MethylPREDNISolone SOD SUCC 40 MG/ML VIAL IVP SCH ×5 (00:15→23:50)
[2016-05-08] MEDS: INSULIN ASPART 100 UNITS/ML SQ PRN ×4 (00:16→17:51)
[2016-05-08 01:12] LABS: GLUCOSE COMMENT 1 Received Meds; GLUCOSE,POINT OF CARE 199 MG/DL (70-110)
[2016-05-08] MEDS: LORazepam 1 MG TABLET PO PRN ×2 (02:05→20:03)
[2016-05-08] MEDS: MORPHINE SULFATE 10 MG/5 ML SOLUTION UDCUP NG SCH ×6 (02:06→21:45)
[2016-05-08] MEDS: IPRATROPIUM BROMIDE 0.5 MG/2.5 ML NEB SOLUTION NEB SCH ×4 (02:11→19:49)
[2016-05-08] MEDS: ALBUTEROL SULFATE 2.5 MG/0.5 ML NEB SOLUTION NEB SCH ×4 (02:11→19:49)
[2016-05-08] MEDS: PROPOFOL 1000 MG/ISO-OSM 100 ML IV PRN ×4 (02:15→13:32)
[2016-05-08 02:47] LABS: GLUCOSE COMMENT 1 Received Meds; GLUCOSE,POINT OF CARE 170 MG/DL (70-110)
[2016-05-08 04:07] LABS: GLUCOSE COMMENT 1 Received Meds; GLUCOSE,POINT OF CARE 145 MG/DL (70-110)
[2016-05-08 05:31] LABS: BASOPHILS % (AUTO) 0.3 % (0.0-2.0); EOSINOPHILS % (AUTO) 0 % (1.0-6.0); HEMATOCRIT 28.3 % (36-46); HEMOGLOBIN 9.1 g/dL (12.0-16.0); LYMPHOCYTES # (AUTO) 0.9 K/uL (1.0-4.8); LYMPHOCYTES % (AUTO) 8.1 % (22.0-44.0); MEAN CORPUSCULAR HEMOGLOBIN 26.1 pg (26.0-34.0); MEAN CORPUSCULAR HGB CONC 32.3 G/dL (31.0-37.0); MEAN CORPUSCULAR VOLUME 81 fL (80-100); MONOCYTES # (AUTO) 0.2 K/uL (0.1-1.0); MONOCYTES % (AUTO) 1.4 % (2.0-9.0); NEUTROPHILS # (AUTO) 10.4 K/uL (1.8-7.7); PLATELET COUNT (AUTO) 282 K/uL (150-450); RED CELL DISTRIBUTION WIDTH 17.2 % (11.5-14.5); WHITE BLOOD COUNT (AUTO) 11.5 K/uL (4.5-11.0)
[2016-05-08 05:37] LABS: NEUTROPHILS % (AUTO) 90.2 % (40.0-70.0)
[2016-05-08 05:45] LABS: ALANINE AMINOTRANSFERASE 37 U/L (12-78); ALBUMIN 2.3 g/dL (3.4-5.0); ANION GAP 11 mmol/L (8-16); BILIRUBIN,TOTAL 0.2 mg/dL (0.1-1.0); CALCIUM, TOTAL 7.7 mg/dL (8.8-10.5); CARBON DIOXIDE 23 mmol/L (22-29); CHLORIDE 110 mmol/L (98-107); CREATININE 0.59 mg/dL (0.60-1.30); GLOMERULAR FILTR. RATE CALC > 60 mL/min (>60); POTASSIUM 3.5 mmol/L (3.5-5.1); SODIUM SERUM 144 mmol/L (136-145); TOTAL PROTEIN, SERUM 6.1 g/dL (6.4-8.2); UREA NITROGEN, BLOOD 13 mg/dL (7-18)
[2016-05-08 06:30] LABS: ASPARTATE AMINOTRANSFERASE 17 U/L (15-37)
[2016-05-08] MEDS: BUDESONIDE 0.5 MG/2 ML NEB SOLUTION NEB SCH ×2 (07:38→19:49)
[2016-05-08] MEDS: IBUPROFEN 800 MG TABLET PO SCH ×3 (07:58→17:30)
[2016-05-08] MEDS: SODIUM CHLORIDE 0.9% 1,000 ML IV SCH ×2 (07:59→17:30)
[2016-05-08] MEDS: OLANZapine 10 MG TABLET PO SCH (08:00)
[2016-05-08] MEDS: PANTOPRAZOLE SODIUM 40 MG/VIAL IVP SCH (08:00)
[2016-05-08] MEDS: TOPIRAMATE 100 MG TABLET PO SCH ×2 (08:01→20:03)
[2016-05-08] MEDS: DOCUSATE SODIUM 100 MG CAPSULE PO SCH ×2 (08:01→20:03)
[2016-05-08] MEDS: BACLOFEN 10 MG TABLET PO SCH ×4 (08:01→20:03)
[2016-05-08] MEDS: CITALOPRAM HYDROBROMIDE 10 MG TABLET PO SCH (08:01)
[2016-05-08 09:21] LABS: RBC MORPHOLOGY COMMENT ABNORMAL RBC MORPH
[2016-05-08 11:25] LABS: ABG A-A DIFF O2 114.3 mmHg (10-20.0); ABG BASE EXCESS -2.2 mmol/L (-2.0-3.0); ABG HCO3 23.1 mmol/L (22.0-26.0); ABG OXYHEMOGLOBIN 96.3 % (94.0-100.0); ABG PCO2 33 mmHg (35-45); ABG PH 7.444 (7.35-7.450); TEMPERATURE, FAHRENHEIT, BG 98.6 FAHREN (96.0-98.6)
[2016-05-08 11:26] LABS: ALLEN TEST, BLOOD GAS Positive
[2016-05-08 16:18] LABS: ABG A-A DIFF O2 134.5 mmHg (10-20.0); ABG BASE EXCESS -4.6 mmol/L (-2.0-3.0); ABG HCO3 21.2 mmol/L (22.0-26.0); ABG PCO2 34 mmHg (35-45); ABG PH 7.393 (7.35-7.450); ALLEN TEST, BLOOD GAS Positive; TEMPERATURE, FAHRENHEIT, BG 98.6 FAHREN (96.0-98.6)
[2016-05-08 17:32] LABS: GLUCOSE,POINT OF CARE 189 MG/DL (70-110)
[2016-05-08 17:44] LABS: ABG A-A DIFF O2 145.1 mmHg (10-20.0); ABG BASE EXCESS -5.4 mmol/L (-2.0-3.0); ABG HCO3 20.8 mmol/L (22.0-26.0); ABG OXYHEMOGLOBIN 90.7 % (94.0-100.0); ABG PCO2 29 mmHg (35-45); ABG PH 7.435 (7.35-7.450); ALLEN TEST, BLOOD GAS Positive; TEMPERATURE, FAHRENHEIT, BG 98.6 FAHREN (96.0-98.6)
[2016-05-08] MEDS: OxyCODONE HCL/ACETAMINOPHEN 5-325 MG TABLET PO PRN ×2 (19:30→23:51)
[2016-05-08] MEDS: CefTRIAXone SODIUM 2 GM in DEXTROSE 5%-WATER 50 ML IV SCH (20:03)
[2016-05-08 20:47] LABS: GLUCOSE COMMENT 1 Received Meds; GLUCOSE,POINT OF CARE 171 MG/DL (70-110)
[2016-05-08 20:47] LABS: GLUCOSE COMMENT 1 Received Meds; GLUCOSE,POINT OF CARE 158 MG/DL (70-110)
[2016-05-08 21:47] LABS: GLUCOSE COMMENT 1 Received Meds; GLUCOSE,POINT OF CARE 182 MG/DL (70-110)
[2016-05-08] MEDS ORDERED: SODIUM CHLORIDE 0.9% 250 ML IV ONE (23:40)
[2016-05-09] VITALS (12 sets, daily range): BP systolic 121–167; BP diastolic 61–88
[2016-05-09] MEDS: MORPHINE SULFATE 10 MG/5 ML SOLUTION UDCUP NG SCH ×6 (02:02→22:24)
[2016-05-09] MEDS: ALBUTEROL SULFATE 2.5 MG/0.5 ML NEB SOLUTION NEB SCH ×4 (02:06→20:11)
[2016-05-09] MEDS: IPRATROPIUM BROMIDE 0.5 MG/2.5 ML NEB SOLUTION NEB SCH ×4 (02:06→20:11)
[2016-05-09] MEDS: LORazepam 1 MG TABLET PO PRN ×4 (03:14→19:54)
[2016-05-09] MEDS: SODIUM CHLORIDE 0.9% 1,000 ML IV SCH (03:28)
[2016-05-09 05:11] LABS: BASOPHILS % (AUTO) 0.1 % (0.0-2.0); EOSINOPHILS % (AUTO) 0 % (1.0-6.0); HEMATOCRIT 30.7 % (36-46); HEMOGLOBIN 9.9 g/dL (12.0-16.0); LYMPHOCYTES % (AUTO) 6.8 % (22.0-44.0); MEAN CORPUSCULAR HEMOGLOBIN 25.9 pg (26.0-34.0); MEAN CORPUSCULAR HGB CONC 32.1 G/dL (31.0-37.0); MEAN CORPUSCULAR VOLUME 81 fL (80-100); MONOCYTES # (AUTO) 0.2 K/uL (0.1-1.0); MONOCYTES % (AUTO) 1.1 % (2.0-9.0); NEUTROPHILS # (AUTO) 13.3 K/uL (1.8-7.7); PLATELET COUNT (AUTO) 297 K/uL (150-450); RED BLOOD CELL COUNT(AUTO) 3.81 MIL/uL (4.00-5.20); RED CELL DISTRIBUTION WIDTH 17.4 % (11.5-14.5); WHITE BLOOD COUNT (AUTO) 14.4 K/uL (4.5-11.0)
[2016-05-09] MEDS: MethylPREDNISolone SOD SUCC 40 MG/ML VIAL IVP SCH ×3 (05:24→18:24)
[2016-05-09] MEDS: INSULIN ASPART 100 UNITS/ML SQ PRN ×3 (05:26→20:12)
[2016-05-09 06:00] LABS: ALANINE AMINOTRANSFERASE 45 U/L (12-78); ALBUMIN 2.5 g/dL (3.4-5.0); ASPARTATE AMINOTRANSFERASE 20 U/L (15-37); BILIRUBIN,TOTAL 0.2 mg/dL (0.1-1.0); CALCIUM, TOTAL 8.1 mg/dL (8.8-10.5); CREATININE 0.64 mg/dL (0.60-1.30); GLOMERULAR FILTR. RATE CALC > 60 mL/min (>60); TOTAL PROTEIN, SERUM 6.3 g/dL (6.4-8.2); UREA NITROGEN, BLOOD 11 mg/dL (7-18)
[2016-05-09 07:09] LABS: RBC MORPHOLOGY COMMENT ABNORMAL RBC MORPH
[2016-05-09 07:19] LABS: ANION GAP 13 mmol/L (8-16); CARBON DIOXIDE 23 mmol/L (22-29); CHLORIDE 110 mmol/L (98-107); SODIUM SERUM 146 mmol/L (136-145)
[2016-05-09] MEDS: BUDESONIDE 0.5 MG/2 ML NEB SOLUTION NEB SCH ×2 (07:51→20:11)
[2016-05-09 08:07] LABS: GLUCOSE,POINT OF CARE 161 MG/DL (70-110)
[2016-05-09 08:07] LABS: GLUCOSE COMMENT 1 Received Meds; GLUCOSE,POINT OF CARE 161 MG/DL (70-110)
[2016-05-09 08:32] LABS: GLUCOSE,POINT OF CARE 129 MG/DL (70-110)
[2016-05-09] MEDS: IBUPROFEN 800 MG TABLET PO SCH ×3 (08:43→19:48)
[2016-05-09] MEDS: PANTOPRAZOLE SODIUM 40 MG/VIAL IVP SCH (08:43)
[2016-05-09] MEDS: HEPARIN SODIUM,PORCINE 5,000 UNITS/ML VIAL SQ SCH ×2 (08:43→15:36)
[2016-05-09] MEDS: OLANZapine 10 MG TABLET PO SCH (08:44)
[2016-05-09] MEDS: CITALOPRAM HYDROBROMIDE 10 MG TABLET PO SCH (08:44)
[2016-05-09] MEDS: TOPIRAMATE 100 MG TABLET PO SCH ×2 (08:44→19:49)
[2016-05-09] MEDS: BACLOFEN 10 MG TABLET PO SCH ×4 (08:44→19:49)
[2016-05-09] MEDS: DOCUSATE SODIUM 100 MG CAPSULE PO SCH (08:44)
[2016-05-09] MEDS: OxyCODONE HCL/ACETAMINOPHEN 5-325 MG TABLET PO PRN ×3 (08:54→18:25)
[2016-05-09] MEDS: LOPERAMIDE HCL 2 MG CAPSULE PO PRN ×3 (13:01→19:54)
[2016-05-09] MEDS: CefTRIAXone SODIUM 2 GM in DEXTROSE 5%-WATER 50 ML IV SCH (19:49)
[2016-05-09] MEDS: POTASSIUM CHLORIDE 10% 40 MEQ/30 ML LIQUID UDCUP NG PRN (19:49)
[2016-05-10] VITALS (7 sets, daily range): BP systolic 122–153; BP diastolic 59–92
[2016-05-10] MEDS: HEPARIN SODIUM,PORCINE 5,000 UNITS/ML VIAL SQ SCH ×3 (00:09→15:42)
[2016-05-10] MEDS: MethylPREDNISolone SOD SUCC 40 MG/ML VIAL IVP SCH (00:09)
[2016-05-10] MEDS: OxyCODONE HCL/ACETAMINOPHEN 5-325 MG TABLET PO PRN ×4 (00:10→15:41)
[2016-05-10] MEDS: MORPHINE SULFATE 10 MG/5 ML SOLUTION UDCUP NG SCH ×6 (02:10→21:10)
[2016-05-10] MEDS: POTASSIUM CHLORIDE 10% 40 MEQ/30 ML LIQUID UDCUP NG PRN (02:10)
[2016-05-10] MEDS: IPRATROPIUM BROMIDE 0.5 MG/2.5 ML NEB SOLUTION NEB SCH ×4 (02:11→20:04)
[2016-05-10] MEDS: ALBUTEROL SULFATE 2.5 MG/0.5 ML NEB SOLUTION NEB SCH ×4 (02:11→20:04)
[2016-05-10] MEDS: INSULIN ASPART 100 UNITS/ML SQ PRN ×3 (06:02→18:14)
[2016-05-10 06:56] LABS: POTASSIUM 3.2 mmol/L (3.5-5.1)
[2016-05-10] MEDS: PredniSONE 20 MG TABLET PO SCH (07:46)
[2016-05-10] MEDS: PANTOPRAZOLE SODIUM 40 MG/VIAL IVP SCH (07:47)
[2016-05-10] MEDS: BACLOFEN 10 MG TABLET PO SCH ×4 (07:49→21:09)
[2016-05-10] MEDS: TOPIRAMATE 100 MG TABLET PO SCH ×2 (07:49→21:09)
[2016-05-10] MEDS: IBUPROFEN 800 MG TABLET PO SCH ×3 (07:49→17:47)
[2016-05-10] MEDS: BUDESONIDE 0.5 MG/2 ML NEB SOLUTION NEB SCH ×2 (07:50→20:05)
[2016-05-10] MEDS: OLANZapine 10 MG TABLET PO SCH (07:50)
[2016-05-10] MEDS: CITALOPRAM HYDROBROMIDE 10 MG TABLET PO SCH (07:50)
[2016-05-10 07:51] LABS: EOSINOPHILS % (AUTO) 0 % (1.0-6.0); HEMATOCRIT 34.6 % (36-46); HEMOGLOBIN 11.1 g/dL (12.0-16.0); LYMPHOCYTES # (AUTO) 1.4 K/uL (1.0-4.8); LYMPHOCYTES % (AUTO) 6.8 % (22.0-44.0); MEAN CORPUSCULAR HEMOGLOBIN 25.9 pg (26.0-34.0); MEAN CORPUSCULAR HGB CONC 32.1 G/dL (31.0-37.0); MEAN CORPUSCULAR VOLUME 81 fL (80-100); MONOCYTES # (AUTO) 0.9 K/uL (0.1-1.0); MONOCYTES % (AUTO) 4.3 % (2.0-9.0); NEUTROPHILS # (AUTO) 18.1 K/uL (1.8-7.7); NEUTROPHILS % (AUTO) 88.9 % (40.0-70.0); PLATELET COUNT (AUTO) 328 K/uL (150-450); RED BLOOD CELL COUNT(AUTO) 4.29 MIL/uL (4.00-5.20); RED CELL DISTRIBUTION WIDTH 18.2 % (11.5-14.5); WHITE BLOOD COUNT (AUTO) 20.4 K/uL (4.5-11.0)
[2016-05-10 07:54] LABS: ALANINE AMINOTRANSFERASE 47 U/L (12-78); ALBUMIN 2.8 g/dL (3.4-5.0); ANION GAP 12 mmol/L (8-16); ASPARTATE AMINOTRANSFERASE 20 U/L (15-37); BILIRUBIN,TOTAL 0.3 mg/dL (0.1-1.0); CALCIUM, TOTAL 8.7 mg/dL (8.8-10.5); CARBON DIOXIDE 22 mmol/L (22-29); CHLORIDE 107 mmol/L (98-107); CREATININE 0.66 mg/dL (0.60-1.30); GLOMERULAR FILTR. RATE CALC > 60 mL/min (>60); POTASSIUM 3.6 mmol/L (3.5-5.1); SODIUM SERUM 141 mmol/L (136-145); TOTAL PROTEIN, SERUM 7.2 g/dL (6.4-8.2); UREA NITROGEN, BLOOD 13 mg/dL (7-18)
[2016-05-10 08:31] LABS: RBC MORPHOLOGY COMMENT ABNORMAL RBC MORPH
[2016-05-10 09:26] LABS: GLUCOSE COMMENT 1 Received Meds; GLUCOSE,POINT OF CARE 172 MG/DL (70-110)
[2016-05-10] MEDS: LOPERAMIDE HCL 2 MG CAPSULE PO PRN (09:28)
[2016-05-10] MEDS: LORazepam 1 MG TABLET PO PRN ×2 (11:48→21:09)
[2016-05-10] MEDS ORDERED: SODIUM CHLORIDE 0.9% 100 ML ONE (21:15)
[2016-05-10] MEDS: CefTRIAXone SODIUM 2 GM in DEXTROSE 5%-WATER 50 ML IV SCH (21:19)
[2016-05-11] VITALS (8 sets, daily range): BP systolic 107–135; BP diastolic 45–91
[2016-05-11] MEDS: HEPARIN SODIUM,PORCINE 5,000 UNITS/ML VIAL SQ SCH ×4 (00:04→23:52)
[2016-05-11] MEDS: OxyCODONE HCL/ACETAMINOPHEN 5-325 MG TABLET PO PRN ×4 (01:17→20:28)
[2016-05-11] MEDS: LOPERAMIDE HCL 2 MG CAPSULE PO PRN ×3 (01:17→20:28)
[2016-05-11] MEDS: MORPHINE SULFATE 10 MG/5 ML SOLUTION UDCUP NG SCH ×6 (01:54→23:52)
[2016-05-11] MEDS: IPRATROPIUM BROMIDE 0.5 MG/2.5 ML NEB SOLUTION NEB SCH ×4 (03:02→19:40)
[2016-05-11] MEDS: ALBUTEROL SULFATE 2.5 MG/0.5 ML NEB SOLUTION NEB SCH ×4 (03:02→19:40)
[2016-05-11 06:50] LABS: BASOPHILS % (AUTO) 0.2 % (0.0-2.0); EOSINOPHILS % (AUTO) 0.2 % (1.0-6.0); HEMATOCRIT 32.4 % (36-46); HEMOGLOBIN 10.5 g/dL (12.0-16.0); LYMPHOCYTES # (AUTO) 2.9 K/uL (1.0-4.8); LYMPHOCYTES % (AUTO) 16.2 % (22.0-44.0); MEAN CORPUSCULAR HEMOGLOBIN 26.3 pg (26.0-34.0); MEAN CORPUSCULAR HGB CONC 32.4 G/dL (31.0-37.0); MEAN CORPUSCULAR VOLUME 81 fL (80-100); MONOCYTES # (AUTO) 0.9 K/uL (0.1-1.0); NEUTROPHILS # (AUTO) 14.1 K/uL (1.8-7.7); NEUTROPHILS % (AUTO) 78.4 % (40.0-70.0); PLATELET COUNT (AUTO) 296 K/uL (150-450); RED BLOOD CELL COUNT(AUTO) 3.98 MIL/uL (4.00-5.20); RED CELL DISTRIBUTION WIDTH 17.5 % (11.5-14.5); WHITE BLOOD COUNT (AUTO) 17.9 K/uL (4.5-11.0)
[2016-05-11] MEDS: BUDESONIDE 0.5 MG/2 ML NEB SOLUTION NEB SCH ×2 (07:05→19:40)
[2016-05-11 07:25] LABS: ALANINE AMINOTRANSFERASE 48 U/L (12-78); ALBUMIN 2.7 g/dL (3.4-5.0); ANION GAP 10 mmol/L (8-16); ASPARTATE AMINOTRANSFERASE 24 U/L (15-37); BILIRUBIN,TOTAL 0.4 mg/dL (0.1-1.0); CALCIUM, TOTAL 8.3 mg/dL (8.8-10.5); CARBON DIOXIDE 25 mmol/L (22-29); CHLORIDE 111 mmol/L (98-107); CREATININE 0.67 mg/dL (0.60-1.30); GLOMERULAR FILTR. RATE CALC > 60 mL/min (>60); POTASSIUM 3.2 mmol/L (3.5-5.1); SODIUM SERUM 146 mmol/L (136-145); TOTAL PROTEIN, SERUM 6.8 g/dL (6.4-8.2); UREA NITROGEN, BLOOD 12 mg/dL (7-18)
[2016-05-11] MEDS: PANTOPRAZOLE SODIUM 40 MG/VIAL IVP SCH (07:54)
[2016-05-11] MEDS: POTASSIUM CHLORIDE 10% 40 MEQ/30 ML LIQUID UDCUP NG PRN (07:54)
[2016-05-11] MEDS: TOPIRAMATE 100 MG TABLET PO SCH ×2 (07:55→20:28)
[2016-05-11] MEDS: OLANZapine 10 MG TABLET PO SCH (07:55)
[2016-05-11] MEDS: BACLOFEN 10 MG TABLET PO SCH ×4 (07:55→20:27)
[2016-05-11] MEDS: CITALOPRAM HYDROBROMIDE 10 MG TABLET PO SCH (07:55)
[2016-05-11] MEDS: IBUPROFEN 800 MG TABLET PO SCH ×3 (07:56→18:11)
[2016-05-11] MEDS: PredniSONE 20 MG TABLET PO SCH (07:56)
[2016-05-11] MEDS: INSULIN ASPART 100 UNITS/ML SQ PRN (11:38)
[2016-05-11] MEDS: LORazepam 1 MG TABLET PO PRN (14:29)
[2016-05-11] MEDS: CefTRIAXone SODIUM 2 GM in DEXTROSE 5%-WATER 50 ML IV SCH (20:27)
[2016-05-12] MEDS: IPRATROPIUM BROMIDE 0.5 MG/2.5 ML NEB SOLUTION NEB SCH ×5 (02:00→14:36)
[2016-05-12] MEDS: ALBUTEROL SULFATE 2.5 MG/0.5 ML NEB SOLUTION NEB SCH ×5 (02:00→14:36)
[2016-05-12 04:40] VITALS: BP 117/53
[2016-05-12] MEDS: LOPERAMIDE HCL 2 MG CAPSULE PO PRN ×2 (06:00→12:25)
[2016-05-12] MEDS: MORPHINE SULFATE 10 MG/5 ML SOLUTION UDCUP NG SCH ×3 (06:00→14:00)
[2016-05-12] MEDS: OxyCODONE HCL/ACETAMINOPHEN 5-325 MG TABLET PO PRN (06:45)
[2016-05-12 07:09] LABS: BASOPHILS # (AUTO) 0.03 K/uL (0.00-0.20); BASOPHILS % (AUTO) 0.2 % (0.0-2.0); EOSINOPHILS # (AUTO) 0.02 K/uL (0.00-0.70); EOSINOPHILS % (AUTO) 0.14 % (1.0-6.0); HEMATOCRIT 33.3 % (36-46); HEMOGLOBIN 10.9 g/dL (12.0-16.0); LYMPHOCYTES # (AUTO) 3.1 K/uL (1.0-4.8); LYMPHOCYTES % (AUTO) 19.7 % (22.0-44.0); MEAN CORPUSCULAR HEMOGLOBIN 26.7 pg (26.0-34.0); MEAN CORPUSCULAR HGB CONC 32.7 G/dL (31.0-37.0); MEAN CORPUSCULAR VOLUME 82 fL (80-100); MONOCYTES # (AUTO) 0.6 K/uL (0.1-1.0); MONOCYTES % (AUTO) 3.6 % (2.0-9.0); NEUTROPHILS # (AUTO) 12.2 K/uL (1.8-7.7); NEUTROPHILS % (AUTO) 76.4 % (40.0-70.0); PLATELET COUNT (AUTO) 280 K/uL (150-450); RED BLOOD CELL COUNT(AUTO) 4.08 MIL/uL (4.00-5.20); RED CELL DISTRIBUTION WIDTH 18.4 % (11.5-14.5); WHITE BLOOD COUNT (AUTO) 15.9 K/uL (4.5-11.0)
[2016-05-12 07:23] VITALS: BP 130/74
[2016-05-12 07:25] LABS: RBC MORPHOLOGY COMMENT ABNORMAL RBC MORPH
[2016-05-12 07:54] LABS: ALANINE AMINOTRANSFERASE 44 U/L (12-78); ALBUMIN 2.7 g/dL (3.4-5.0); ANION GAP 11 mmol/L (8-16); ASPARTATE AMINOTRANSFERASE 16 U/L (15-37); BILIRUBIN,TOTAL 0.3 mg/dL (0.1-1.0); CALCIUM, TOTAL 8.6 mg/dL (8.8-10.5); CARBON DIOXIDE 24 mmol/L (22-29); CHLORIDE 106 mmol/L (98-107); CREATININE 0.65 mg/dL (0.60-1.30); GLOMERULAR FILTR. RATE CALC > 60 mL/min (>60); POTASSIUM 3.6 mmol/L (3.5-5.1); SODIUM SERUM 141 mmol/L (136-145); TOTAL PROTEIN, SERUM 6.9 g/dL (6.4-8.2); UREA NITROGEN, BLOOD 14 mg/dL (7-18)
[2016-05-12] MEDS: BUDESONIDE 0.5 MG/2 ML NEB SOLUTION NEB SCH (08:09)
[2016-05-12] MEDS: PredniSONE 20 MG TABLET PO SCH (09:29)
[2016-05-12] MEDS: BACLOFEN 10 MG TABLET PO SCH ×3 (09:29→15:47)
[2016-05-12] MEDS: CITALOPRAM HYDROBROMIDE 10 MG TABLET PO SCH (09:29)
[2016-05-12] MEDS: OLANZapine 10 MG TABLET PO SCH (09:29)
[2016-05-12] MEDS: TOPIRAMATE 100 MG TABLET PO SCH (09:29)
[2016-05-12] MEDS: PANTOPRAZOLE SODIUM 40 MG/VIAL IVP SCH (09:30)
[2016-05-12] MEDS: IBUPROFEN 800 MG TABLET PO SCH ×2 (09:30→12:23)
[2016-05-12] MEDS: HEPARIN SODIUM,PORCINE 5,000 UNITS/ML VIAL SQ SCH ×3 (09:30→15:58)
[2016-05-12] MEDS ORDERED: PRED10TA3 PO (11:08)
[2016-05-12] MEDS ORDERED: AMOX1TAB16 PO (11:08)
[2016-05-12 11:23] VITALS: BP 118/45
[2016-05-12 15:45] VITALS: BP 120/69
[2016-05-12] MEDS: LORazepam 1 MG TABLET PO PRN (15:47)
[2016-05-13 05:32] LABS: GLUCOSE COMMENT 1 Received Meds; GLUCOSE,POINT OF CARE 141 MG/DL (70-110)
[2016-05-13 15:02] LABS: GLUCOSE,POINT OF CARE 92 MG/DL (70-110)
[2016-05-13 15:02] LABS: GLUCOSE,POINT OF CARE 111 MG/DL (70-110)
[2016-05-13 15:23] LABS: GLUCOSE COMMENT 1 Received Meds; GLUCOSE,POINT OF CARE 159 MG/DL (70-110)
[2016-05-13 15:23] LABS: GLUCOSE,POINT OF CARE 100 MG/DL (70-110)
[2016-05-13 15:36] LABS: GLUCOSE,POINT OF CARE 118 MG/DL (70-110)
[2016-05-13 15:36] LABS: GLUCOSE,POINT OF CARE 99 MG/DL (70-110)
== END 2016-05-12 15:15 | disposition home or self-care (01) | DRG 720 ==
LOC: EMS 19:13 → 5S 21:47 → ICU 05-04 01:27 → 5S 05-09 14:00
PROVIDERS: ADMIT Internal Medicine; ATTEND Internal Medicine
PROC: 3E0234Z Introduction of Serum, Toxoid and Vaccine into Muscle, Percutaneous Approach (ICD-10-PCS; 2016-05-01)
PROC: 0BH17EZ Insertion of Endotracheal Airway into Trachea, Via Natural or Artificial Opening (ICD-10-PCS; principal; 2016-05-04)
PROC: 5A1955Z Respiratory Ventilation, Greater than 96 Consecutive Hours (ICD-10-PCS; 2016-05-04)
PROC: 5A09457 Assistance with Respiratory Ventilation, 24-96 Consecutive Hours, Continuous Positive Airway Pressure (ICD-10-PCS; 2016-05-10)
DX: A40.3 Sepsis due to Streptococcus pneumoniae (principal); J96.01 Acute respiratory failure with hypoxia; E43 Unspecified severe protein-calorie malnutrition; J13 Pneumonia due to Streptococcus pneumoniae; E87.1 Hypo-osmolality and hyponatremia; E88.09 Other disorders of plasma-protein metabolism, not elsewhere classified; J44.0 Chronic obstructive pulmonary disease with (acute) lower respiratory infection; E87.6 Hypokalemia; D64.9 Anemia, unspecified; E83.42 Hypomagnesemia; E03.9 Hypothyroidism, unspecified; E66.01 Morbid (severe) obesity due to excess calories; F17.210 Nicotine dependence, cigarettes, uncomplicated; F43.10 Post-traumatic stress disorder, unspecified; I10 Essential (primary) hypertension; J44.1 Chronic obstructive pulmonary disease with (acute) exacerbation; J45.909 Unspecified asthma, uncomplicated; R19.7 Diarrhea, unspecified; T38.0X5A Adverse effect of glucocorticoids and synthetic analogues, initial encounter; F32.9 Major depressive disorder, single episode, unspecified; G89.29 Other chronic pain; M54.9 Dorsalgia, unspecified; Z88.2 Allergy status to sulfonamides; Z88.8 Allergy status to other drugs, medicaments and biological substances; Z88.0 Allergy status to penicillin; Z90.710 Acquired absence of both cervix and uterus; Z91.030 Bee allergy status; Z79.899 Other long term (current) drug therapy; Z79.51 Long term (current) use of inhaled steroids; Z79.1 Long term (current) use of non-steroidal anti-inflammatories (NSAID); Z87.42 Personal history of other diseases of the female genital tract; Z90.49 Acquired absence of other specified parts of digestive tract; Z98.890 Other specified postprocedural states; Z87.19 Personal history of other diseases of the digestive system; Z90.722 Acquired absence of ovaries, bilateral; Z78.1 Physical restraint status; Z68.34 Body mass index [BMI] 34.0-34.9, adult; X58.XXXA Exposure to other specified factors, initial encounter; Y93.89 Activity, other specified; Y92.89 Other specified places as the place of occurrence of the external cause; Y99.8 Other external cause status
CPT/HCPCS: 71275; 80307; 82805; 82962; 83036; 83735; 83935; 84100; 84132; 84145; 84300; 84443; 86635; 87040; 87070; 87081; 87106; 87205; 87324; 87449; 87804; 87899; 90471; 92610; 93005; 93306; 94002; 94003; 94640; 94644; 94645; 94660; 96365; 96366; 96374; 96375; 99291; C9113; G0480; J0692; J0696; J1644; J1956; J2060; J2250; J2270; J2405; J2704; J2920; J2930; J3010; J3370; J3475; J3480; J3490; J3535; J7030; J7050; J7060

== ENCOUNTER 2017-05-23 11:45 | Emergency (ER) | payer OTHER ==
[~2017-05-23] VITALS: Ht 154.9 cm; Wt 75.0 kg
[~2017-05-23 11:45] MED LIST changes: -ALBU8.5H IH; +ALBU8.5H8 IH; +AMOX1TAB16 PO; +BACL10TA PO; -CARI350 PO; -IBUP-1547 PO; +IBUP-2071 PO; -LEVO500 PO; +PRED10TA3 PO; -TOPI-37 PO; +TOPI100T38 PO
[2017-05-23] MEDS ORDERED: HYDR4TAB4 PO (11:59)
[2017-05-23] MEDS ORDERED: IBUPROFEN 800 MG TABLET PO ONE (13:15)
[2017-05-23 14:00] VITALS: BP 136/74
== END 2017-05-23 14:26 | disposition home or self-care (01) ==
LOC: EMS 11:46
DX: K04.7 Periapical abscess without sinus (principal); R10.11 Right upper quadrant pain; E03.9 Hypothyroidism, unspecified; F17.210 Nicotine dependence, cigarettes, uncomplicated; F31.9 Bipolar disorder, unspecified; F43.10 Post-traumatic stress disorder, unspecified; I10 Essential (primary) hypertension; J45.909 Unspecified asthma, uncomplicated; N83.209 Unspecified ovarian cyst, unspecified side; Z88.0 Allergy status to penicillin; Z88.2 Allergy status to sulfonamides; Z90.49 Acquired absence of other specified parts of digestive tract; Z90.710 Acquired absence of both cervix and uterus; Z79.899 Other long term (current) drug therapy
CPT/HCPCS: 99283; 99406

== ENCOUNTER 2017-05-25 18:46 | Emergency (ER) | payer OTHER ==
[~2017-05-25] VITALS: Ht 154.9 cm; Wt 72.7 kg
[~2017-05-25 18:46] MED LIST changes: +HYDR4TAB4 PO
[2017-05-25 19:25] LABS: BASOPHILS % (AUTO) 0.6 % (0.0-2.0); EOSINOPHILS % (AUTO) 0 % (1.0-6.0); LYMPHOCYTES # (AUTO) 2.8 K/uL (1.0-4.8); LYMPHOCYTES % (AUTO) 17.7 % (22.0-44.0); MEAN CORPUSCULAR HEMOGLOBIN 27.1 pg (26.0-34.0); MEAN CORPUSCULAR HGB CONC 34.3 G/dL (31.0-37.0); MEAN CORPUSCULAR VOLUME 79 fL (80-100); MONOCYTES # (AUTO) 0.9 K/uL (0.1-1.0); MONOCYTES % (AUTO) 5.9 % (2.0-9.0); NEUTROPHILS # (AUTO) 11.8 K/uL (1.8-7.7); NEUTROPHILS % (AUTO) 75.8 % (40.0-70.0); PLATELET COUNT (AUTO) 288 K/uL (150-450); RED BLOOD CELL COUNT(AUTO) 4.43 MIL/uL (4.00-5.20); RED CELL DISTRIBUTION WIDTH 14.4 % (11.5-14.5)
[2017-05-25 19:30] LABS: APPEARANCE,URINE CLEAR (CLEAR); BILIRUBIN,URINE NEGATIVE (NEGATIVE); GLUCOSE, URINE (UA) NEGATIVE (NEGATIVE); KETONES,URINE NEGATIVE (NEGATIVE); LEUKOCYTE ESTERASE ,URINE NEGATIVE (NEGATIVE); NITRATE,URINE NEGATIVE (NEGATIVE); OCCULT BLOOD,URINE NEGATIVE (NEGATIVE); PROTEIN,URINE NEGATIVE (NEGATIVE); UROBILINOGEN,URINE 0.2 mg/dL (<=1.0)
[2017-05-25 20:10] LABS: ANION GAP 12 mmol/L (8-16); CALCIUM, TOTAL 9.1 mg/dL (8.8-10.5); CARBON DIOXIDE 24 mmol/L (22-29); CHLORIDE 103 mmol/L (98-107); CREATININE 0.79 mg/dL (0.60-1.30); GLOMERULAR FILTR. RATE CALC > 60 mL/min (>60); GLUCOSE,RANDOM 99 mg/dL (70-110); POTASSIUM 3.7 mmol/L (3.5-5.1); SODIUM SERUM 139 mmol/L (136-145); UREA NITROGEN, BLOOD 5 mg/dL (7-18)
[2017-05-25] MEDS ORDERED: MORP30 PO (20:10)
[2017-05-25] MEDS ORDERED: FAMOTIDINE 10 MG/ML 2 ML VIAL IVP ONE (20:15)
[2017-05-25] MEDS ORDERED: PANTOPRAZOLE SODIUM 40 MG/VIAL IVP ONE (20:15)
[2017-05-25] MEDS ORDERED: ONDANSETRON HCL 4 MG/2 ML VIAL IVP ONE (20:15)
[2017-05-25 20:16] LABS: ALANINE AMINOTRANSFERASE 15 U/L (12-78); ALBUMIN 3.3 g/dL (3.4-5.0); ALKALINE PHOSPHATASE 124 U/L (46-116); ASPARTATE AMINOTRANSFERASE 9 U/L (15-37); BILIRUBIN,TOTAL 0.2 mg/dL (0.1-1.0); TOTAL PROTEIN, SERUM 7.5 g/dL (6.4-8.2)
[2017-05-25 20:28] LABS: LIPASE 72 U/L (73-393)
[2017-05-25] MEDS ORDERED: KETOROLAC TROMETHAMINE 30 MG/ML VIAL IVP ONE (21:00)
[2017-05-25] MEDS ORDERED: PB/HYOSCY/ATR/SCOP/LIDO/MAALOX 55 ML BOTTLE PO ONE (21:00)
[2017-05-25 21:07] VITALS: BP 114/68
== END 2017-05-25 21:10 | disposition home or self-care (01) ==
LOC: EMS 18:48
DX: K29.70 Gastritis, unspecified, without bleeding (principal); K29.90 Gastroduodenitis, unspecified, without bleeding; I10 Essential (primary) hypertension; E03.9 Hypothyroidism, unspecified; J45.909 Unspecified asthma, uncomplicated; N83.209 Unspecified ovarian cyst, unspecified side; F17.210 Nicotine dependence, cigarettes, uncomplicated; F32.9 Major depressive disorder, single episode, unspecified; Z87.11 Personal history of peptic ulcer disease; Z88.0 Allergy status to penicillin; Z88.2 Allergy status to sulfonamides; Z90.49 Acquired absence of other specified parts of digestive tract; Z90.710 Acquired absence of both cervix and uterus; Z88.8 Allergy status to other drugs, medicaments and biological substances
CPT/HCPCS: 36415; 80053; 81003; 83690; 84703; 85025; 96374; 96375; 99285; C9113; J1885; J2405; J3490; Z7610

== ENCOUNTER 2017-07-24 11:26 | Emergency (ER) | payer OTHER ==
[~2017-07-24] VITALS: Ht 154.9 cm; Wt 72.7 kg
[~2017-07-24 11:26] MED LIST changes: -ALBU8.5H8 IH; -AMOX1TAB16 PO; -BACL10TA PO; -HYDR1LIQ5 PO; -IPRA3AMP4 IH; -LORA1TAB3 PO; -MORP15 PO; +MORP30 PO; -PRED10TA3 PO; -TOPI100T38 PO
[2017-07-24] MEDS ORDERED: HYDROCODONE/ACETAMINOPHEN 10-325 MG TABLET PO ONE (13:15)
[2017-07-24] MEDS ORDERED: CLINDAMYCIN 900 MG/D5% WATER 50 ML IV ONE (14:30)
[2017-07-24] MEDS ORDERED: ONDANSETRON HCL 4 MG/2 ML VIAL IVP ONE (14:45)
[2017-07-24 15:16] VITALS: BP 103/50
== END 2017-07-24 15:35 | disposition home or self-care (01) ==
LOC: EMS 11:27
DX: L03.211 Cellulitis of face (principal); G89.29 Other chronic pain; I10 Essential (primary) hypertension; F31.9 Bipolar disorder, unspecified; E03.9 Hypothyroidism, unspecified; J45.909 Unspecified asthma, uncomplicated; F17.210 Nicotine dependence, cigarettes, uncomplicated; Z98.890 Other specified postprocedural states; Z88.0 Allergy status to penicillin; Z88.8 Allergy status to other drugs, medicaments and biological substances
CPT/HCPCS: 70490; 96365; 96375; 99285; J2405; J3490

== ENCOUNTER 2017-08-03 03:22 | Inpatient (IN) | payer OTHER ==
[~2017-08-03] VITALS: Ht 154.9 cm; Wt 69.1 kg
[2017-08-03] MEDS ORDERED: CLIN150C9 PO (03:36)
[2017-08-03] MEDS ORDERED: HYDR-4031 PO (03:36)
[2017-08-03] MEDS ORDERED: CLIN300C3 PO (03:36)
[2017-08-03] MEDS ORDERED: HYDR-4061 PO (03:36)
[2017-08-03] MEDS ORDERED: METH750T3 PO (03:36)
[2017-08-03] MEDS ORDERED: HYDROCODONE/ACETAMINOPHEN 5-325 MG TABLET PO ONE ×2 (07:00→12:00)
[2017-08-03] MEDS ORDERED: CefTRIAXone SODIUM 1 GM in DEXTROSE 5%-WATER 10 ML IV ONE (07:00)
[2017-08-03] MEDS ORDERED: LORazepam 1 MG TABLET PO ONE ×2 (07:00→12:00)
[2017-08-03 07:24] LABS: ANION GAP 11 mmol/L (8-16); BASOPHILS % (AUTO) 0.9 % (0.0-2.0); CALCIUM, TOTAL 8.6 mg/dL (8.8-10.5); CARBON DIOXIDE 21 mmol/L (22-29); CHLORIDE 107 mmol/L (98-107); CREATININE 0.86 mg/dL (0.60-1.30); EOSINOPHILS % (AUTO) 0.1 % (1.0-6.0); GLOMERULAR FILTR. RATE CALC > 60 mL/min (>60); GLUCOSE,RANDOM 119 mg/dL (70-110); HEMATOCRIT 30.2 % (36-46); HEMOGLOBIN 10.2 g/dL (12.0-16.0); LYMPHOCYTES # (AUTO) 2.3 K/uL (1.0-4.8); LYMPHOCYTES % (AUTO) 19.7 % (22.0-44.0); MEAN CORPUSCULAR HEMOGLOBIN 25.4 pg (26.0-34.0); MEAN CORPUSCULAR HGB CONC 33.9 G/dL (31.0-37.0); MEAN CORPUSCULAR VOLUME 75 fL (80-100); MONOCYTES % (AUTO) 8.4 % (2.0-9.0); NEUTROPHILS # (AUTO) 8.2 K/uL (1.8-7.7); NEUTROPHILS % (AUTO) 70.9 % (40.0-70.0); PLATELET COUNT (AUTO) 334 K/uL (150-450); POTASSIUM 3.2 mmol/L (3.5-5.1); RED BLOOD CELL COUNT(AUTO) 4.03 MIL/uL (4.00-5.20); RED CELL DISTRIBUTION WIDTH 14.7 % (11.5-14.5); SODIUM SERUM 139 mmol/L (136-145); UREA NITROGEN, BLOOD 4 mg/dL (7-18)
[2017-08-03 07:29] LABS: ALANINE AMINOTRANSFERASE 13 U/L (12-78); ALKALINE PHOSPHATASE 114 U/L (46-116); ASPARTATE AMINOTRANSFERASE 7 U/L (15-37); C-REACTIVE PROTEIN QUANT 8.82 mg/dL (0.00-0.30); TOTAL PROTEIN, SERUM 7.5 g/dL (6.4-8.2)
[2017-08-03 07:43] LABS: BILIRUBIN,TOTAL 0.1 mg/dL (0.1-1.0)
[2017-08-03 08:34] LABS: ERYTHROCYTE SEDIMENTATION RATE 70 MM/HR (0-20)
[2017-08-03 14:37] VITALS: BP 122/72
[2017-08-03] MEDS ORDERED: IBUPROFEN 800 MG TABLET PO PRN (15:15)
[2017-08-03] MEDS ORDERED: POTASSIUM CHLORIDE 20 MEQ ER TABLET PO ONE (16:30)
[2017-08-03] MEDS: HYDROCODONE/ACETAMINOPHEN 10-325 MG TABLET PO PRN ×2 (17:10→23:44)
[2017-08-03] MEDS: LORazepam 1 MG TABLET PO PRN (17:14)
[2017-08-03 19:31] VITALS: BP 154/90
[2017-08-03] MEDS: RANITIDINE HCL 150 MG TABLET PO SCH (20:07)
[2017-08-03] MEDS: IBUPROFEN 800 MG TABLET PO SCH (20:08)
[2017-08-03] MEDS: METHOCARBAMOL 750 MG TABLET PO SCH (20:08)
[2017-08-03] MEDS: OxyCODONE HCL 10 MG ER TABLET PO SCH (22:07)
[2017-08-03] MEDS ORDERED: LOPERAMIDE HCL 2 MG CAPSULE PO PRN (23:15)
[2017-08-03 23:32] VITALS: BP 127/76
[2017-08-04] MEDS: LORazepam 1 MG TABLET PO PRN ×3 (00:34→20:53)
[2017-08-04] MEDS: HYDROCODONE/ACETAMINOPHEN 10-325 MG TABLET PO PRN ×3 (05:04→22:35)
[2017-08-04 05:19] VITALS: BP 108/57
[2017-08-04 07:05] LABS: PROTHROMBIN TIME 10.1 SEC (9.4-11.6)
[2017-08-04 08:40] VITALS: BP 109/45
[2017-08-04] MEDS: QUEtiapine FUMARATE 25 MG TABLET PO SCH (09:00)
[2017-08-04] MEDS ORDERED: FentaNYL CITRATE-PF 100 MCG/2 ML VIAL ONE (09:20)
[2017-08-04] MEDS ORDERED: MIDAZOLAM HCL 2 MG/2 ML VIAL ONE (09:20)
[2017-08-04] MEDS ORDERED: NALOXONE HCL 0.4 MG/ML VIAL ONE (09:20)
[2017-08-04] MEDS ORDERED: FLUMAZENIL 0.1 MG/ML 5 ML VIAL IVP ONE (09:21)
[2017-08-04] MEDS ORDERED: MIDAZOLAM HCL 2 MG/2 ML VIAL IVP ONE (10:00)
[2017-08-04] MEDS ORDERED: FentaNYL CITRATE-PF 100 MCG/2 ML VIAL IVP ONE (10:10)
[2017-08-04] MEDS: RANITIDINE HCL 150 MG TABLET PO SCH ×2 (10:54→20:53)
[2017-08-04] MEDS: OxyCODONE HCL 10 MG ER TABLET PO SCH ×2 (10:54→20:53)
[2017-08-04] MEDS: OLANZapine 10 MG TABLET PO SCH (10:54)
[2017-08-04] MEDS: IBUPROFEN 800 MG TABLET PO SCH ×3 (10:54→22:34)
[2017-08-04] MEDS: METHOCARBAMOL 750 MG TABLET PO SCH ×4 (10:55→20:53)
[2017-08-04] MEDS: PROMETHAZINE HCL 25 MG TABLET PO SCH (10:55)
[2017-08-04] MEDS: CITALOPRAM HYDROBROMIDE 10 MG TABLET PO SCH (10:55)
[2017-08-04 12:03] VITALS: BP 124/83
[2017-08-04 16:17] VITALS: BP 115/81
[2017-08-04] MEDS: LACTOBACILLUS ACIDOPHILUS/BULGARICUS GRANULES PACKET PO SCH (22:35)
[2017-08-04 23:51] VITALS: BP 127/65
[2017-08-05] MEDS: LORazepam 1 MG TABLET PO PRN ×3 (03:57→19:54)
[2017-08-05 04:00] VITALS: BP 111/68
[2017-08-05] MEDS: HYDROCODONE/ACETAMINOPHEN 10-325 MG TABLET PO PRN ×3 (04:02→19:54)
[2017-08-05 07:36] VITALS: BP 119/67
[2017-08-05] MEDS: METHOCARBAMOL 750 MG TABLET PO SCH ×4 (09:10→21:27)
[2017-08-05] MEDS: PROMETHAZINE HCL 25 MG TABLET PO SCH (09:10)
[2017-08-05] MEDS: RANITIDINE HCL 150 MG TABLET PO SCH ×2 (09:10→19:54)
[2017-08-05] MEDS: OxyCODONE HCL 10 MG ER TABLET PO SCH ×2 (09:10→21:27)
[2017-08-05] MEDS: IBUPROFEN 800 MG TABLET PO SCH ×3 (09:10→21:27)
[2017-08-05] MEDS: OLANZapine 10 MG TABLET PO SCH (09:10)
[2017-08-05] MEDS: QUEtiapine FUMARATE 25 MG TABLET PO SCH (09:10)
[2017-08-05] MEDS: CITALOPRAM HYDROBROMIDE 10 MG TABLET PO SCH (09:10)
[2017-08-05] MEDS: LACTOBACILLUS ACIDOPHILUS/BULGARICUS GRANULES PACKET PO SCH ×4 (09:50→21:27)
[2017-08-05 11:26] VITALS: BP 101/59
[2017-08-05 16:16] LABS: BASOPHILS % (AUTO) 0.7 % (0.0-2.0); EOSINOPHILS % (AUTO) 0.1 % (1.0-6.0); HEMATOCRIT 32.8 % (36-46); HEMOGLOBIN 11.1 g/dL (12.0-16.0); LYMPHOCYTES # (AUTO) 3.2 K/uL (1.0-4.8); LYMPHOCYTES % (AUTO) 34.7 % (22.0-44.0); MEAN CORPUSCULAR HEMOGLOBIN 25.4 pg (26.0-34.0); MEAN CORPUSCULAR HGB CONC 33.8 G/dL (31.0-37.0); MEAN CORPUSCULAR VOLUME 75 fL (80-100); MONOCYTES # (AUTO) 0.6 K/uL (0.1-1.0); MONOCYTES % (AUTO) 6.1 % (2.0-9.0); NEUTROPHILS # (AUTO) 5.5 K/uL (1.8-7.7); NEUTROPHILS % (AUTO) 58.4 % (40.0-70.0); PLATELET COUNT (AUTO) 391 K/uL (150-450); RED BLOOD CELL COUNT(AUTO) 4.35 MIL/uL (4.00-5.20); RED CELL DISTRIBUTION WIDTH 15.3 % (11.5-14.5)
[2017-08-05 16:24] LABS: ANION GAP 11 mmol/L (8-16); CALCIUM, TOTAL 8.6 mg/dL (8.8-10.5); CARBON DIOXIDE 22 mmol/L (22-29); CHLORIDE 105 mmol/L (98-107); CREATININE 0.83 mg/dL (0.60-1.30); GLOMERULAR FILTR. RATE CALC > 60 mL/min (>60); GLUCOSE,RANDOM 133 mg/dL (70-110); POTASSIUM 3.7 mmol/L (3.5-5.1); SODIUM SERUM 138 mmol/L (136-145); UREA NITROGEN, BLOOD 5 mg/dL (7-18)
[2017-08-05 16:30] LABS: ALANINE AMINOTRANSFERASE 15 U/L (12-78); ALKALINE PHOSPHATASE 120 U/L (46-116); ASPARTATE AMINOTRANSFERASE 11 U/L (15-37); BILIRUBIN,TOTAL 0.1 mg/dL (0.1-1.0); TOTAL PROTEIN, SERUM 7.5 g/dL (6.4-8.2)
[2017-08-05 16:51] VITALS: BP 118/72
[2017-08-05 19:23] VITALS: BP 130/69
[2017-08-05 23:44] VITALS: BP 118/68
[2017-08-06] MEDS: HYDROCODONE/ACETAMINOPHEN 10-325 MG TABLET PO PRN ×3 (01:02→23:11)
[2017-08-06] MEDS: LORazepam 1 MG TABLET PO PRN ×3 (02:04→17:44)
[2017-08-06 04:25] VITALS: BP 123/74
[2017-08-06 06:39] LABS: BASOPHILS % (AUTO) 0.5 % (0.0-2.0); EOSINOPHILS % (AUTO) 0.1 % (1.0-6.0); HEMATOCRIT 33.1 % (36-46); HEMOGLOBIN 10.9 g/dL (12.0-16.0); LYMPHOCYTES # (AUTO) 4.5 K/uL (1.0-4.8); MEAN CORPUSCULAR VOLUME 76 fL (80-100); MONOCYTES # (AUTO) 0.6 K/uL (0.1-1.0); MONOCYTES % (AUTO) 5.5 % (2.0-9.0); NEUTROPHILS # (AUTO) 6.4 K/uL (1.8-7.7); NEUTROPHILS % (AUTO) 54.9 % (40.0-70.0); PLATELET COUNT (AUTO) 417 K/uL (150-450); RED BLOOD CELL COUNT(AUTO) 4.37 MIL/uL (4.00-5.20); RED CELL DISTRIBUTION WIDTH 15.1 % (11.5-14.5)
[2017-08-06 06:53] LABS: ALANINE AMINOTRANSFERASE 16 U/L (12-78); ALBUMIN 3.1 g/dL (3.4-5.0); ALKALINE PHOSPHATASE 122 U/L (46-116); ANION GAP 9 mmol/L (8-16); ASPARTATE AMINOTRANSFERASE 9 U/L (15-37); BILIRUBIN,TOTAL 0.1 mg/dL (0.1-1.0); CALCIUM, TOTAL 8.7 mg/dL (8.8-10.5); CARBON DIOXIDE 21 mmol/L (22-29); CHLORIDE 104 mmol/L (98-107); GLOMERULAR FILTR. RATE CALC > 60 mL/min (>60); GLUCOSE,RANDOM 132 mg/dL (70-110); POTASSIUM 3.8 mmol/L (3.5-5.1); SODIUM SERUM 134 mmol/L (136-145); TOTAL PROTEIN, SERUM 7.8 g/dL (6.4-8.2); UREA NITROGEN, BLOOD 6 mg/dL (7-18)
[2017-08-06 08:01] VITALS: BP 123/72
[2017-08-06] MEDS: OLANZapine 10 MG TABLET PO SCH (10:14)
[2017-08-06] MEDS: OxyCODONE HCL 10 MG ER TABLET PO SCH ×2 (10:14→20:22)
[2017-08-06] MEDS: PROMETHAZINE HCL 25 MG TABLET PO SCH (10:14)
[2017-08-06] MEDS: METHOCARBAMOL 750 MG TABLET PO SCH ×4 (10:14→20:22)
[2017-08-06] MEDS: CITALOPRAM HYDROBROMIDE 10 MG TABLET PO SCH (10:14)
[2017-08-06] MEDS: RANITIDINE HCL 150 MG TABLET PO SCH ×2 (10:14→20:22)
[2017-08-06] MEDS: QUEtiapine FUMARATE 25 MG TABLET PO SCH (10:15)
[2017-08-06] MEDS: LACTOBACILLUS ACIDOPHILUS/BULGARICUS GRANULES PACKET PO SCH ×4 (10:15→20:22)
[2017-08-06] MEDS: IBUPROFEN 800 MG TABLET PO SCH ×3 (10:15→20:22)
[2017-08-06 12:10] VITALS: BP 114/67
[2017-08-06] MEDS: CefTRIAXone SODIUM 2 GM in DEXTROSE 5%-WATER 20 ML IV SCH (15:05)
[2017-08-06 15:49] VITALS: BP 114/67
[2017-08-06] MEDS: MetroNIDAZOLE 500 MG TABLET PO SCH ×2 (17:44→23:12)
[2017-08-06 20:00] VITALS: BP 102/60
[2017-08-07 00:27] VITALS: BP 125/80
[2017-08-07] MEDS: LORazepam 1 MG TABLET PO PRN ×2 (00:57→09:56)
[2017-08-07 04:00] VITALS: BP 123/78
[2017-08-07] MEDS: HYDROCODONE/ACETAMINOPHEN 10-325 MG TABLET PO PRN ×2 (05:55→13:31)
[2017-08-07 06:16] LABS: BASOPHILS % (AUTO) 0.6 % (0.0-2.0); EOSINOPHILS % (AUTO) 0.1 % (1.0-6.0); HEMATOCRIT 33.5 % (36-46); HEMOGLOBIN 11.1 g/dL (12.0-16.0); LYMPHOCYTES # (AUTO) 4.2 K/uL (1.0-4.8); LYMPHOCYTES % (AUTO) 30.5 % (22.0-44.0); MEAN CORPUSCULAR HEMOGLOBIN 24.7 pg (26.0-34.0); MEAN CORPUSCULAR VOLUME 75 fL (80-100); NEUTROPHILS # (AUTO) 8.5 K/uL (1.8-7.7); NEUTROPHILS % (AUTO) 61.8 % (40.0-70.0); PLATELET COUNT (AUTO) 430 K/uL (150-450); RED BLOOD CELL COUNT(AUTO) 4.48 MIL/uL (4.00-5.20); RED CELL DISTRIBUTION WIDTH 14.9 % (11.5-14.5)
[2017-08-07 06:41] LABS: ALANINE AMINOTRANSFERASE 22 U/L (12-78); ALBUMIN 3.1 g/dL (3.4-5.0); ALKALINE PHOSPHATASE 128 U/L (46-116); ANION GAP 8 mmol/L (8-16); ASPARTATE AMINOTRANSFERASE 15 U/L (15-37); BILIRUBIN,TOTAL 0.2 mg/dL (0.1-1.0); CALCIUM, TOTAL 9.2 mg/dL (8.8-10.5); CARBON DIOXIDE 24 mmol/L (22-29); CHLORIDE 105 mmol/L (98-107); CREATININE 0.73 mg/dL (0.60-1.30); GLOMERULAR FILTR. RATE CALC > 60 mL/min (>60); GLUCOSE,RANDOM 96 mg/dL (70-110); POTASSIUM 4.3 mmol/L (3.5-5.1); SODIUM SERUM 137 mmol/L (136-145); TOTAL PROTEIN, SERUM 7.6 g/dL (6.4-8.2); UREA NITROGEN, BLOOD 8 mg/dL (7-18)
[2017-08-07] MEDS: MetroNIDAZOLE 500 MG TABLET PO SCH (08:09)
[2017-08-07] MEDS: IBUPROFEN 800 MG TABLET PO SCH (08:09)
[2017-08-07] MEDS: CITALOPRAM HYDROBROMIDE 10 MG TABLET PO SCH (08:10)
[2017-08-07] MEDS: PROMETHAZINE HCL 25 MG TABLET PO SCH (08:10)
[2017-08-07] MEDS: OLANZapine 10 MG TABLET PO SCH (08:11)
[2017-08-07] MEDS: LACTOBACILLUS ACIDOPHILUS/BULGARICUS GRANULES PACKET PO SCH ×2 (08:11→11:30)
[2017-08-07] MEDS: METHOCARBAMOL 750 MG TABLET PO SCH ×2 (08:11→13:30)
[2017-08-07] MEDS: QUEtiapine FUMARATE 25 MG TABLET PO SCH (08:11)
[2017-08-07] MEDS: RANITIDINE HCL 150 MG TABLET PO SCH (08:11)
[2017-08-07] MEDS: OxyCODONE HCL 10 MG ER TABLET PO SCH (08:13)
[2017-08-07 08:29] VITALS: BP 101/60
[2017-08-07 10:23] LABS: PLATELET MORPHOLOGY COMMENT LARGE PLTS PRESENT
[2017-08-07] MEDS ORDERED: HEPARIN SODIUM 1000 UNITS/NS 500 ML ONE (11:24)
[2017-08-07] MEDS: CefTRIAXone SODIUM 2 GM in DEXTROSE 5%-WATER 20 ML IV SCH (11:30)
[2017-08-07 11:59] VITALS: BP 121/65
[2017-08-07] MEDS ORDERED: CEFX2I IV (13:08)
[2017-08-07] MEDS ORDERED: METR500 PO (14:38)
== END 2017-08-07 15:20 | disposition home or self-care (01) | DRG 114 ==
LOC: EMS 03:25 → 6N 12:49
PROVIDERS: ADMIT Hospitalist; ATTEND Hospitalist
PROC: 0NB Head and Facial Bones, Excision (ICD-10-PCS; principal; 2017-08-04)
PROC: 02HV33Z Insertion of Infusion Device into Superior Vena Cava, Percutaneous Approach (ICD-10-PCS; 2017-08-07)
PROC: B548ZZA Ultrasonography of Superior Vena Cava, Guidance (ICD-10-PCS; 2017-08-07)
DX: M27.2 Inflammatory conditions of jaws (principal); I10 Essential (primary) hypertension; L03.211 Cellulitis of face; F32.9 Major depressive disorder, single episode, unspecified; J44.9 Chronic obstructive pulmonary disease, unspecified; K21.9 Gastro-esophageal reflux disease without esophagitis; F43.10 Post-traumatic stress disorder, unspecified; G89.29 Other chronic pain; E87.6 Hypokalemia; M54.9 Dorsalgia, unspecified; R19.7 Diarrhea, unspecified; E03.9 Hypothyroidism, unspecified; F17.210 Nicotine dependence, cigarettes, uncomplicated; Z90.49 Acquired absence of other specified parts of digestive tract; Z90.710 Acquired absence of both cervix and uterus; Z88.0 Allergy status to penicillin; Z88.2 Allergy status to sulfonamides; Z88.8 Allergy status to other drugs, medicaments and biological substances; Z88.1 Allergy status to other antibiotic agents; Z91.030 Bee allergy status; Z79.899 Other long term (current) drug therapy; Z82.49 Family history of ischemic heart disease and other diseases of the circulatory system
CPT/HCPCS: 21550; 36245; 36569; 76000; 76937; 84145; 85651; 86140; 87015; 87040; 87070; 87101; 87205; 87206; 88304; 88312; 96374; 99285; J0696; J1644; J2250; J2310; J3010; J3490; J7060

== ENCOUNTER 2017-09-08 16:06 | Emergency (ER) | payer OTHER ==
[~2017-09-08] VITALS: Ht 154.9 cm; Wt 65.9 kg
[~2017-09-08 16:06] MED LIST changes: +CEFX2I IV; +HYDR-4031 PO; +HYDR-4061 PO; -HYDR4TAB4 PO; +METH750T3 PO; +METR500 PO
[2017-09-08 17:03] LABS: BASOPHILS % (AUTO) 0.9 % (0.0-2.0); EOSINOPHILS % (AUTO) 0 % (1.0-6.0); HEMOGLOBIN 12.8 g/dL (12.0-16.0); LYMPHOCYTES # (AUTO) 2.6 K/uL (1.0-4.8); LYMPHOCYTES % (AUTO) 27.9 % (22.0-44.0); MEAN CORPUSCULAR HEMOGLOBIN 25.1 pg (26.0-34.0); MEAN CORPUSCULAR HGB CONC 32.7 G/dL (31.0-37.0); MEAN CORPUSCULAR VOLUME 77 fL (80-100); MONOCYTES # (AUTO) 0.4 K/uL (0.1-1.0); MONOCYTES % (AUTO) 4.7 % (2.0-9.0); NEUTROPHILS # (AUTO) 6.3 K/uL (1.8-7.7); NEUTROPHILS % (AUTO) 66.5 % (40.0-70.0); PLATELET COUNT (AUTO) 284 K/uL (150-450); RED BLOOD CELL COUNT(AUTO) 5.08 MIL/uL (4.00-5.20); RED CELL DISTRIBUTION WIDTH 18.8 % (11.5-14.5)
[2017-09-08 17:30] LABS: ALANINE AMINOTRANSFERASE 29 U/L (12-78); ALBUMIN 3.9 g/dL (3.4-5.0); ALKALINE PHOSPHATASE 120 U/L (46-116); ANION GAP 14 mmol/L (8-16); ASPARTATE AMINOTRANSFERASE 14 U/L (15-37); BILIRUBIN,TOTAL 0.2 mg/dL (0.1-1.0); CALCIUM, TOTAL 9.2 mg/dL (8.8-10.5); CARBON DIOXIDE 22 mmol/L (22-29); CHLORIDE 106 mmol/L (98-107); CREATININE 0.83 mg/dL (0.60-1.30); GLOMERULAR FILTR. RATE CALC > 60 mL/min (>60); GLUCOSE,RANDOM 113 mg/dL (70-110); LIPASE 154 U/L (73-393); SODIUM SERUM 142 mmol/L (136-145); TOTAL PROTEIN, SERUM 8.1 g/dL (6.4-8.2); UREA NITROGEN, BLOOD 3 mg/dL (7-18)
[2017-09-08 17:32] LABS: POTASSIUM 2.9 mmol/L (3.5-5.1)
[2017-09-08 20:03] LABS: APPEARANCE,URINE CLEAR (CLEAR); BILIRUBIN,URINE NEGATIVE (NEGATIVE); GLUCOSE, URINE (UA) NEGATIVE (NEGATIVE); KETONES,URINE NEGATIVE (NEGATIVE); LEUKOCYTE ESTERASE ,URINE NEGATIVE (NEGATIVE); NITRATE,URINE NEGATIVE (NEGATIVE); OCCULT BLOOD,URINE NEGATIVE (NEGATIVE); PROTEIN,URINE NEGATIVE (NEGATIVE); UROBILINOGEN,URINE 0.2 mg/dL (<=1.0)
[2017-09-08] MEDS ORDERED: POTASSIUM CHLORIDE 20 MEQ ER TABLET PO ONE (21:30)
[2017-09-08] MEDS ORDERED: POTASSIUM CHL 40 MEQ/D5-0.45NS 1,000 ML IV ONE (21:30)
[2017-09-08] MEDS ORDERED: HYDROCODONE/ACETAMINOPHEN 5-325 MG TABLET PO ONE (22:00)
[2017-09-08] MEDS ORDERED: LORazepam 2 MG/ML VIAL IVP ONE (22:00)
[2017-09-08] MEDS ORDERED: SODIUM CHLORIDE 0.9% 1,000 ML IV ONE (22:00)
[2017-09-08 23:06] LABS: C.DIFF GDH ANTIGEN, Stool Negative (Negative); C.DIFF TOXINS A&B, Stool Negative (Negative)
[2017-09-09 02:32] VITALS: BP 118/74
[2017-09-09] MEDS ORDERED: HYDR-3112 PO (23:33)
[2017-09-09] MEDS ORDERED: CITA-106 PO (23:33)
[2017-09-09] MEDS ORDERED: OLAN10TA3 PO (23:33)
[2017-09-09] MEDS ORDERED: QUET25TA PO (23:33)
[2017-09-09] MEDS ORDERED: GABA-529 PO (23:33)
== END 2017-09-09 02:34 | disposition home or self-care (01) ==
LOC: EMS 16:07
DX: R10.84 Generalized abdominal pain (principal); R19.7 Diarrhea, unspecified; E87.6 Hypokalemia; E03.9 Hypothyroidism, unspecified; I10 Essential (primary) hypertension; J45.909 Unspecified asthma, uncomplicated; F17.210 Nicotine dependence, cigarettes, uncomplicated; Z88.0 Allergy status to penicillin; Z88.2 Allergy status to sulfonamides; Z88.8 Allergy status to other drugs, medicaments and biological substances
CPT/HCPCS: 36415; 80053; 81003; 83690; 85025; 87045; 87324; 87449; 96365; 96375; 99285; 99406; J2060; J3480; J7030

== ENCOUNTER 2017-09-09 23:25 | Emergency (ER) | payer OTHER ==
[~2017-09-09] VITALS: Ht 154.9 cm; Wt 63.6 kg
[~2017-09-09 23:25] MED LIST changes: -CEFX2I IV; -CITA10TA7 PO; -HYDR-4031 PO; -IBUP-2071 PO; -METR500 PO; -OLAN10TA3 PO; -PROM25 PO; -QUET25TA PO
[2017-09-09] MEDS ORDERED: OLAN10TA3 PO (23:33)
[2017-09-09] MEDS ORDERED: CITA-106 PO (23:33)
[2017-09-09] MEDS ORDERED: GABA-529 PO (23:33)
[2017-09-09] MEDS ORDERED: HYDR-3112 PO (23:33)
[2017-09-09] MEDS ORDERED: QUET25TA PO (23:33)
[2017-09-10] MEDS ORDERED: BENZTROPINE MESYLATE 1 MG/ML 2 ML VIAL IM ONE (01:15)
[2017-09-10] MEDS ORDERED: DiphenhydrAMINE HCL 50 MG/ML VIAL IM ONE (01:15)
[2017-09-10 01:55] VITALS: BP 132/60
== END 2017-09-10 01:56 | disposition home or self-care (01) ==
LOC: EMS 23:26
DX: G25.9 Extrapyramidal and movement disorder, unspecified (principal); I10 Essential (primary) hypertension; J45.909 Unspecified asthma, uncomplicated; E03.9 Hypothyroidism, unspecified; G89.29 Other chronic pain; F32.9 Major depressive disorder, single episode, unspecified; F17.210 Nicotine dependence, cigarettes, uncomplicated; Z88.0 Allergy status to penicillin; Z88.2 Allergy status to sulfonamides; Z88.8 Allergy status to other drugs, medicaments and biological substances
CPT/HCPCS: 96372; 99284; J0515; J1200

== ENCOUNTER 2017-12-30 04:10 | Emergency (ER) | payer OTHER ==
[~2017-12-30] VITALS: Ht 154.9 cm; Wt 68.2 kg
[~2017-12-30 04:10] MED LIST changes: +CITA-106 PO; +GABA-529 PO; +HYDR-3112 PO; +OLAN10TA3 PO; +QUET25TA PO
[2017-12-30] MEDS ORDERED: BUSP10TA23 PO (04:20)
[2017-12-30] MEDS ORDERED: PERCT10 PO (04:20)
[2017-12-30 05:26] LABS: APPEARANCE,URINE CLEAR (CLEAR); BILIRUBIN,URINE NEGATIVE (NEGATIVE); GLUCOSE, URINE (UA) NEGATIVE (NEGATIVE); KETONES,URINE NEGATIVE (NEGATIVE); LEUKOCYTE ESTERASE ,URINE NEGATIVE (NEGATIVE); NITRATE,URINE POSITIVE (NEGATIVE); OCCULT BLOOD,URINE NEGATIVE (NEGATIVE); PH,URINE 6.5 (5.0-8.0); PROTEIN,URINE NEGATIVE (NEGATIVE)
[2017-12-30 05:36] LABS: BACTERIA,URINE Few /HPF (None Seen); RBC,URINE 0-2 /HPF (0-2); SQUAMOUS EPITHELIAL CELL,UR Rare /LPF (None Seen); WBC,URINE 0-2 /HPF (0-5)
[2017-12-30 05:40] LABS: BASOPHILS % (AUTO) 0.4 % (0.0-2.0); EOSINOPHILS % (AUTO) 0.1 % (1.0-6.0); HEMATOCRIT 33.4 % (36-46); HEMOGLOBIN 11.5 g/dL (12.0-16.0); LYMPHOCYTES # (AUTO) 2.3 K/uL (1.0-4.8); LYMPHOCYTES % (AUTO) 23.4 % (22.0-44.0); MEAN CORPUSCULAR HEMOGLOBIN 28.2 pg (26.0-34.0); MEAN CORPUSCULAR HGB CONC 34.4 G/dL (31.0-37.0); MEAN CORPUSCULAR VOLUME 82 fL (80-100); MONOCYTES # (AUTO) 0.6 K/uL (0.1-1.0); MONOCYTES % (AUTO) 6.1 % (2.0-9.0); NEUTROPHILS # (AUTO) 6.8 K/uL (1.8-7.7); PLATELET COUNT (AUTO) 218 K/uL (150-450); RED BLOOD CELL COUNT(AUTO) 4.07 MIL/uL (4.00-5.20); RED CELL DISTRIBUTION WIDTH 16.5 % (11.5-14.5)
[2017-12-30] MEDS ORDERED: KETOROLAC TROMETHAMINE 30 MG/ML VIAL IM ONE (05:45)
[2017-12-30 05:49] LABS: ANION GAP 6 mmol/L (8-16); CALCIUM, TOTAL 8.3 mg/dL (8.8-10.5); CARBON DIOXIDE 24 mmol/L (22-29); CHLORIDE 107 mmol/L (98-107); GLOMERULAR FILTR. RATE CALC > 60 mL/min (>60); GLUCOSE,RANDOM 94 mg/dL (70-110); POTASSIUM 3.5 mmol/L (3.5-5.1); SODIUM SERUM 137 mmol/L (136-145); UREA NITROGEN, BLOOD 6 mg/dL (7-18)
[2017-12-30 05:57] LABS: ALANINE AMINOTRANSFERASE 16 U/L (12-78); ALBUMIN 3.1 g/dL (3.4-5.0); ALKALINE PHOSPHATASE 125 U/L (46-116); ASPARTATE AMINOTRANSFERASE 13 U/L (15-37); BILIRUBIN,TOTAL 0.2 mg/dL (0.1-1.0); HCG,QUANTITATIVE 2 mIU/mL (0-6); LIPASE 83 U/L (73-393); TOTAL PROTEIN, SERUM 6.5 g/dL (6.4-8.2)
[2017-12-30 05:58] VITALS: BP 119/74
== END 2017-12-30 06:10 | disposition home or self-care (01) ==
LOC: EMS 04:11
DX: R30.0 Dysuria (principal); R10.84 Generalized abdominal pain; J45.909 Unspecified asthma, uncomplicated; I10 Essential (primary) hypertension; E03.9 Hypothyroidism, unspecified; F32.9 Major depressive disorder, single episode, unspecified; G89.29 Other chronic pain; F17.210 Nicotine dependence, cigarettes, uncomplicated; Z90.710 Acquired absence of both cervix and uterus; Z90.49 Acquired absence of other specified parts of digestive tract; Z88.1 Allergy status to other antibiotic agents; Z88.0 Allergy status to penicillin; Z88.2 Allergy status to sulfonamides; Z88.8 Allergy status to other drugs, medicaments and biological substances
CPT/HCPCS: 36415; 80053; 81001; 83690; 84702; 85025; 96372; 99284; J1885

== ENCOUNTER 2021-12-11 15:41 | Emergency (ER) | payer OTHER ==
[~2021-12-11] VITALS: Ht 157.5 cm; Wt 59.1 kg
[~2021-12-11 15:41] MED LIST changes: +BUSP10TA23 PO; -CITA-106 PO; +CITA-144 PO; -GABA-529 PO; -HYDR-3112 PO; -HYDR-4061 PO; +METH-812 PO; -METH750T3 PO; -OLAN10TA3 PO; +OLAN10TA74 PO; +OXYC-490 PO
[2021-12-11] MEDS ORDERED: HYDROCODONE/ACETAMINOPHEN 5-325 MG TABLET PO ONE (17:30)
[2021-12-11 17:35] VITALS: BP 121/84
== END 2021-12-11 17:46 | disposition home or self-care (01) ==
LOC: EMS 15:43
DX: M25.562 Pain in left knee (principal); J45.909 Unspecified asthma, uncomplicated; F31.9 Bipolar disorder, unspecified; I10 Essential (primary) hypertension; N80.9 Endometriosis, unspecified; F17.210 Nicotine dependence, cigarettes, uncomplicated; Z87.42 Personal history of other diseases of the female genital tract; Z87.19 Personal history of other diseases of the digestive system; Z87.39 Personal history of other diseases of the musculoskeletal system and connective tissue; Z87.09 Personal history of other diseases of the respiratory system; Z86.59 Personal history of other mental and behavioral disorders; Z90.49 Acquired absence of other specified parts of digestive tract; Z90.710 Acquired absence of both cervix and uterus; Z88.0 Allergy status to penicillin; Z88.8 Allergy status to other drugs, medicaments and biological substances; Z88.1 Allergy status to other antibiotic agents; Z91.030 Bee allergy status
CPT/HCPCS: 99283